=== PATIENT | female | born 1950 | race Hispanic/Latino ===

== ENCOUNTER 2017-08-30 18:53 | Emergency (ER) | payer OTHER, MEDICARE ==
[2017-08-30 20:18] LABS: Hematocrit 39.6 % (30.3-42.9); Mean Corpuscular HGB Conc 33 % (30-34); Mean Corpuscular Hemoglobin 29 pg (28-32); Mean Corpuscular Volume 89 fl (79-97); Platelet Count 182 K/mm3 (140-440); Red Blood Count 4.46 M/mm3 (3.65-5.03); Red Cell Distribution Width 14.9 % (13.2-15.2); White Blood Count 9.6 K/mm3 (4.5-11.0)
[2017-08-30 20:19] LABS: Anion Gap 19 mmol/L; BUN/Creatinine Ratio 19; Blood Urea Nitrogen 17 mg/dL (7-17); Calcium 9.7 mg/dL (8.4-10.2); Carbon Dioxide 28 mmol/L (22-30); Chloride 99.8 mmol/L (98-107); Glucose 150 mg/dL (65-100); Potassium 4.6 mmol/L (3.6-5.0); Sodium 142 mmol/L (137-145)
[2017-08-30] MEDS ORDERED: NACL 0.9% 500 ML 500 ML IV ONE (22:27)
[2017-08-30] MEDS ORDERED: DILAUDID IV ONE (22:27)
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
[2017-08-30] MEDS ORDERED: NACL 0.9% 1000 ML 1,000 ML ONE (22:53)
[2017-08-30] MEDS ORDERED: NACL ONE (23:17)
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
[2017-08-31 02:20] VITALS: BP 147/76
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
== END 2017-08-31 02:21 | disposition home or self-care (01) ==
LOC: ED 18:53
DX: M54.2 Cervicalgia (principal); R10.9 Unspecified abdominal pain; I10 Essential (primary) hypertension; I25.2 Old myocardial infarction; E11.9 Type 2 diabetes mellitus without complications; K21.9 Gastro-esophageal reflux disease without esophagitis; J45.909 Unspecified asthma, uncomplicated; F17.200 Nicotine dependence, unspecified, uncomplicated; V49.49XA Driver injured in collision with other motor vehicles in traffic accident, initial encounter; Y93.89 Activity, other specified; Y92.89 Other specified places as the place of occurrence of the external cause; Y99.8 Other external cause status
CPT/HCPCS: 36415; 70450; 71020; 72170; 74177; 80048; 85027; 93005; 93010; 96374; 99284; J1170; J7030; Q9967

== ENCOUNTER 2019-03-12 13:08 | Inpatient (IN) | payer MEDICARE, OTHER ==
--- NOTE | 2019-03-12 13:32 | Emergency Department Report ---
Blank Doc - Documentation Documentation: This is a 68-year-old female that presents with left sided neck swelling with left arm pain and swelling. HX of carotid artery bypass. Stated has pain then radiating to chest. This initial assessment/diagnostic orders/clinical plan/treatment(s) is/are subject to change based on patient's health status, clinical progression and re- assessment by fellow clinical providers in the ED. Further treatment and workup at subsequent clinical providers discretion. Patient/guardians urged not to elope from the ED as their condition may be serious if not clinically assessed and managed. Initial orders include: 1- Patient sent to MAIN ED for further evaluation and treatment 2- labs 3- EKG 4- Doppler US
--- NOTE | 2019-03-12 13:53 | Emergency Department Report ---
Chief Complaint: Extremity Problem,Nontraumatic Stated Complaint: CHEST PAIN/ (L) HAND SWOLLEN/TINGLING Time Seen by Provider: 03/12/19 13:29 - HPI History of Present Illness: Patient presents with multiple complaints. She has swelling of the left hand and arm. She has pain travels up the arm into the left side of her chest. She has a headache with nonspecific dizziness. The patient has multiple comorbidities including coronary artery disease with previous bypass surgery. She follows with [facility]. - ROS Review of Systems: Patient is positive for arm pain, arm swelling, chest pain, headache, dizziness - Exam Vital Signs: Vital Signs 03/12/19 13:29 Temperature 98.4 F Pulse Rate 89 Respiratory 16 Rate Blood Pressure 174/91 O2 Sat by Pulse 95 Oximetry Physical Exam: Patient is awake and alert. She does have some swelling of the left hand and forearm. No significant color change. Extraocular motion intact. Cranial nerves intact. MSE screening note: Focused history and physical exam performed. Due to findings the following was ordered: The patient will have CT of the head without contrast, left upper extremity venous Doppler, chest x-ray, EKG and blood work done. She will be seen on the main side of the emergency department. ED Disposition for MSE Condition: Stable
--- NOTE | 2019-03-12 14:52 | XRay Report ---
ROUTINE CHEST, TWO VIEWS: HISTORY: chest pain. Previous thoracic surgery changes are noted. The trachea, heart, mediastinal contour, lung nelson and bony thorax are unremarkable. IMPRESSION: No acute cardiopulmonary process. No change since 08/30/17.
[2019-03-12 15:00] LABS: Basophils % (Auto) 0.3 % (0.0-1.8); Eosinophils # (Auto) 0.1 K/mm3 (0.0-0.4); Eosinophils % (Auto) 1.6 % (0.0-4.3); Hematocrit 40.5 % (30.3-42.9); Hemoglobin 13.7 gm/dl (10.1-14.3); Lymphocytes # (Auto) 2.5 K/mm3 (1.2-5.4); Lymphocytes % (Auto) 31.9 % (13.4-35.0); Mean Corpuscular HGB Conc 34 % (30-34); Mean Corpuscular Volume 91 fl (79-97); Monocytes # (Auto) 0.5 K/mm3 (0.0-0.8); Platelet Count 142 K/mm3 (140-440); Red Blood Count 4.45 M/mm3 (3.65-5.03); Red Cell Distribution Width 15.2 % (13.2-15.2)
--- NOTE | 2019-03-12 15:00 | Cat Scan Report ---
CT HEAD WITHOUT CONTRAST: HISTORY: Headache with dizziness. TECHNIQUE: Sequential 2.5mm CT images. COMPARISON: 08/31/17. FINDINGS: Cerebral Parenchyma: Mild cortical volume loss and mild chronic ischemic changes in the white matter are noted. Subcentimeter chronic lacunar infarcts are identified in both anterior basal ganglia which are unchanged. The remainder of the brain parenchyma is within normal limits. Cerebellum: Within normal limits. Brainstem: Within normal limits. Ventricles: Normal. Sella: Normal. Extra-axial spaces: Normal. Basal Cisterns: Normal. Intracranial Hemorrhage: None. Midline Shift: None. Calvarium: Normal. Sinuses: Normal. Mastoid Air Cells: Normal. Visualized Orbits: Normal. IMPRESSION: No acute intracranial process. Chronic findings as described above which are unchanged since 08/31/17.
[2019-03-12] MEDS ORDERED: BABY ASPIRIN PO ONE (15:09)
[2019-03-12] MEDS ORDERED: MORPHINE IV ONE (15:09)
[2019-03-12 15:14] LABS: INR 0.93 (0.87-1.13)
--- NOTE | 2019-03-12 15:26 | Vascular Lab Report ---
PROCEDURE: VL VENOUS DUPLEX UE LT TECHNIQUE: Grayscale and color and spectral Doppler ultrasound imaging of the left upper extremity v enous system was performed. HISTORY: left arm pain and swelling COMPARISONS: None. FINDINGS: Acute, nonocclusive DVT is seen within the left axillary vein. Superficial venous thrombus is seen wi thin the left cephalic vein in the mid forearm. The remaining left upper extremity venous system is p atent with normal color flow, compression and augmentation. IMPRESSION: 1. Positive for left upper extremity DVT in the left axillary vein. 2. Positive for superficial venous thrombus in the left cephalic vein at the level of the mid forearm . Findings were discussed with Dr. Mejias at 12:23 PM PST on 03/12/2019. This document is electronically signed by Dacia Arriola., Mar 12 2019 03:23:51 PM ET
[2019-03-12 15:47] LABS: BUN/Creatinine Ratio 13; Blood Urea Nitrogen 16 mg/dL (7-17); Calcium 9.6 mg/dL (8.4-10.2); Hemolysis Index 9
--- NOTE | 2019-03-12 16:18 | Emergency Department Report ---
HPI - General Chief Complaint: Extremity Problem,Nontraumatic Time Seen by Provider: 03/12/19 13:29 - HPI HPI: 68-year-old female presents to the emergency department with multiple complaints. Her main issue is left upper extremity pain and swelling. The swelling is worst towards the hand and forearm but she says the pain shoots up into her shoulder and then into her chest. Secondly, the patient complains of a generalized headache with some nonspecific dizziness. She denies any vision change, slurred speech or any neurological deficits. Patient complains of some shortness of breath but denies any fever, cough, nausea, vomiting or di aphoresis. She has a past medical history of arthritis, asthma, diabetes, GERD, coronary artery disease with previous bypass surgery, hypertension, AAA and previous colectomy. The patient follows with heart cardiology. Her primary care physician is in [facility]. ED Past Medical Hx - Past Medical History Previous Medical History?: Yes Hx Hypertension: Yes Hx Heart Attack/AMI: Yes Hx Diabetes: Yes Hx GERD: Yes Hx Arthritis: Yes (hip shoulder) Hx Asthma: Yes Additional medical history: abd hernia r/t to colectomy, elevated cholesterol - Surgical History Past Surgical History?: Yes Hx Coronary Stent: Yes (1) Hx Appendectomy: Yes Hx Breast Surgery: Yes (B/L lumps removed) Additional Surgical History: cabbage-2007,stents this year bilateral legs,AAA, colectomy without colostomy.///bladder tack,hysterecomy - Social History Smoking Status: Current Every Day Smoker - Medications Home Medications: Home Medications Medication Instructions Recorded Confirmed Last Taken Type Aspirin EC 325 mg PO DAILY 05/08/14 11/04/15 11/03/15 History 325mg HYDROcodone/ACETAMINOPHEN 1 each PO DAILY 05/08/14 11/04/15 11/01/15 History [Hydrocodon-Acetaminophn 10-325] 1 tab Lisinopril 10 mg PO DAILY 05/08/14 11/04/15 11/03/15 History 10mg Nitroglycerin [Nitrostat] 0.4 mg PO PRN PRN 05/08/14 11/04/15 11/02/15 History 0.4mg Sertraline [Zoloft] 50 mg PO DAILY 05/08/14 11/04/15 11/03/15 History 50mg Icosapent Ethyl [Vascepa] 2 gm PO BID 11/04/15 11/04/15 11/03/15 History 2gm NexIUM 40 mg PO DAILY 11/04/15 11/04/15 11/03/15 History 40mg Norvasc 2.5 mg PO DAILY 11/04/15 11/04/15 11/03/15 History 2.5mg Promethazine [Phenergan] 25 mg PO PRN PRN 11/04/15 11/04/15 11/02/15 History 25mg Ranexa 1,000 mg PO BID 11/04/15 11/04/15 11/03/15 History 1000mg Topiramate [Topamax] 25 mg PO BID 11/04/15 11/04/15 11/03/15 History 25mg Nicotine [Habitrol] 21 mg TD QDAY #30 patch 11/05/15 Unknown Rx Prasugrel [Effient] 10 mg PO QDAY #90 tablet 11/05/15 Unknown Rx HYDROcodone/APAP 5-325 [[place] 1 each PO Q6HR PRN #12 tablet 08/31/17 Unknown Rx 5-325 mg TAB] ED Review of Systems ROS: Stated complaint: CHEST PAIN/ (L) HAND SWOLLEN/TINGLING Other details as noted in HPI Comment: All other systems reviewed and negative Constitutional: denies: chills, fever Eyes: denies: eye pain, vision change ENT: denies: ear pain, throat pain Respiratory: shortness of breath. denies: cough Cardiovascular: chest pain, edema. denies: palpitations Gastrointestinal: denies: abdominal pain, vomiting Genitourinary: denies: dysuria, discharge Musculoskeletal: joint swelling, arthralgia. denies: back pain Skin: denies: rash, lesions Neurological: headache, other (dizziness) Physical Exam - Physical Exam Vital Signs: Vital Signs 03/12/19 13:29 Temperature 98.4 F Pulse Rate 89 Respiratory 16 Rate Blood Pressure 174/91 O2 Sat by Pulse 95 Oximetry Physical Exam: GENERAL: The patient is well-developed well-nourished. HENT: Normocephalic. Atraumatic. Patient has moist mucous membranes. EYES: Extraocular motions are intact. Pupils equal reactive to light bilaterally. NECK: Supple. Trachea is midline. CHEST/LUNGS: Clear to auscultation. There is no respiratory distress noted. HEART/CARDIOVASCULAR: Regular. There is no tachycardia. There is no murmur. ABDOMEN: Abdomen is soft, nontender. Patient has normal bowel sounds. SKIN: There is mild to moderate nonpitting swelling of the left hand and forearm. NEURO: The patient is awake, alert, and oriented. The patient is cooperative. The patient has no focal neurologic deficits. The patient has normal speech. MUSCULOSKELETAL: She has some tenderness to palpation along the left upper extremity. There is no limitation range of motion. Radial pulse posterior 4 and capillary refill less than 2 seconds to the affected left upper extremity. ED Course Vital Signs 03/12/19 13:29 Temperature 98.4 F Pulse Rate 89 Respiratory 16 Rate Blood Pressure 174/91 O2 Sat by Pulse 95 Oximetry ED Medical Decision Making - Lab Data Result diagrams: 03/12/19 14:49 03/12/19 14:49 - EKG Data -: EKG Interpreted by Me EKG shows normal: sinus rhythm, axis (left axis deviation), intervals, QRS complexes (LVH), ST-T waves - EKG Data When compared to previous EKG there are: no significant change Interpretation: unchanged when compared t (09/01/17) - Radiology Data Radiology results: report reviewed, image reviewed interpreted by me: Chest x-ray does not show any acute process. There are no pleural effusions, obvious pneumonia and there is no pneumothorax. PROCEDURE: VL VENOUS DUPLEX UE LT TECHNIQUE: Grayscale and color and spectral Doppler ultrasound imaging of the left upper extremity venous system was performed. HISTORY: left arm pain and swelling COMPARISONS: None. FINDINGS: Acute, nonocclusive DVT is seen within the left axillary vein. Superficial venous thrombus is seen within the left cephalic vein in the mid forearm. The remaining left upper extremity venous system is patent with normal color flow, compression and augmentation. IMPRESSION: 1. Positive for left upper extremity DVT in the left axillary vein. 2. Positive for superficial venous thrombus in the left cephalic vein at the level of the mid forearm. CT HEAD WITHOUT CONTRAST: HISTORY: Headache with dizziness. TECHNIQUE: Sequential 2.5mm CT images. COMPARISON: 08/31/17. FINDINGS: Cerebral Parenchyma: Mild cortical volume loss and mild chronic ischemic changes in the white matter are noted. Subcentimeter chronic lacunar infarcts are identified in both anterior basal ganglia which are unchanged. The remainder of the brain parenchyma is within normal limits. Cerebellum: Within normal limits. Brainstem: Within normal limits. Ventricles: Normal. Sella: Normal. Extra-axial spaces: Normal. Basal Cisterns: Normal. Intracranial Hemorrhage: None. Midline Shift: None. Calvarium: Normal. Sinuses: Normal. Mastoid Air Cells: Normal. Visualized Orbits: Normal. IMPRESSION: No acute intracranial process. Chronic findings as described above which are unchanged since 08/31/17. Transcribed By: TTR Dictated By: RANGEL CM JR, MD Electronically Authenticated By: RANGEL CM JR, MD Signed Date/Time: 03/12/19 2708 - Medical Decision Making This patient presents to the emergency Department with complaints of left upper extremity pain and swelling with the pain going into the left side of her chest. She also complains of a headache with dizziness. On examination she does not appear to have any focal, motor or sensory deficits and her cranial nerves are intact. Heart and lung sounds are normal to auscultation and she does not appear in any respiratory distress. She does have left upper extremity nonpitting swelling and some tenderness to palpation in this area. EKG does not show any signs of ST elevation DE and is unchanged from previous. Patient's labs are mostly unremarkable including a first negative troponin. She had a venous Doppler ultrasound of the left upper extremity that shows a left axillary vein DVT and a superficial thrombophlebitis of the cephalic vein at the level of the forearm. I discussed these findings with the patient and the need to start her on anticoagulation. With the acute DVT and the patient's left-sided chest pain, along with her history of significant coronary artery disease and bypass surgery, the patient will be admitted to the hospital for further evaluation and treatment was excepted for admission by the hospitalist, Dr. Rodriguez. - Differential Diagnosis DVT, PE, DE, dysrhythmia, pneumonia Critical Care Time: Yes Critical care time in (mins) excluding proc time.: 31 Critical care attestation.: If time is entered above; I have spent that time in minutes in the direct care of this critically ill patient, excluding procedure time. Critical care time was spent on this patient and during her initial evaluation, multiple re- evaluations, ordering and interpretation of labs and imaging, ordering of heparin protocol Critical Care Time: 31 minutes ED Disposition Clinical Impression: Acute deep vein thrombosis (DVT) of axillary vein of left upper extremity, Acute chest pain, History of coronary artery disease Hypertension Qualifiers: Hypertension type: essential hypertension Qualified Code(s): I10 - Essential (primary) hypertension Disposition: 09 OP ADMIT IP TO THIS HOSP Is pt being admited?: Yes Condition: Serious Instructions: Chest Pain (ED), Hypertension (ED) Referrals: PRIMARY CARE, [Primary Care Provider] - 3-5 Days Time of Disposition: 17:10
[2019-03-12] MEDS ORDERED: HEPARIN 10,000 UNITS/10 ML IV ONE (16:23)
--- NOTE | 2019-03-12 16:25 | History and Physical Report ---
History of Present Illness Chief complaint: My chest hurts, and my arm hurts History of present illness: 68 YO Female with Obesity,HTN, [place], DM, HLD, GERD, OA, Asthma, PVD, CAD S/P CABG and Stent placement, Nicotine Dependence presents to ED for evaluation. Pt states that she has experienced pain in her arm and chest over the past 2 days with persistent symptoms over the same time frame. Pt also reports Left arm swel ling. Pt states that pain is 5/10, Constant, radiates from the left shoulder to the chest, and then from the chest back to the left shoulder, and down the left arm. Pt acknowledges shortness of breath, dypsnea with exertion, and decreased exercise tolerance. Pt transported to [facility] via private vehicle. Pt seen and evaluated in ED and found to have Angina, as well as symptoms consistent with diastolic CHF. Pt also found to have LUE DVT and Superficial Vein thrombosis on LUE Duplex. Pt initiated on therapeutic anticoagulation and admitted to telemetry. Pt denies fever, chills, palpitations, NVD, Trauma, skin rash, BRBPR, unintentional weight loss, night sweats. No prior admission for review. All listed medication reconciled at time of admission. Past History Past Surgical History: appendectomy, abd. aortic aneurysm repair, CABG, hysterectomy, hernia repair, bowel surgery, Other (Cardiac cath, cardiac stent placement) Social history: , smoking Family history: hypertension Medications and Allergies Allergies Allergy/AdvReac Type Severity Reaction Status Date / Time moxifloxacin HCl Allergy Swelling Verified 05/08/14 08:59 [From Avelox] Home Medications Medication Instructions Recorded Confirmed Last Taken Type Aspirin EC 325 mg PO DAILY 05/08/14 11/04/15 11/03/15 History 325mg HYDROcodone/ACETAMINOPHEN 1 each PO DAILY 05/08/14 11/04/15 11/01/15 History [Hydrocodon-Acetaminophn 10-325] 1 tab Lisinopril 10 mg PO DAILY 05/08/14 11/04/15 11/03/15 History 10mg Nitroglycerin [Nitrostat] 0.4 mg PO PRN PRN 05/08/14 11/04/15 11/02/15 History 0.4mg Sertraline [Zoloft] 50 mg PO DAILY 05/08/14 11/04/15 11/03/15 History 50mg Icosapent Ethyl [Vascepa] 2 gm PO BID 11/04/15 11/04/15 11/03/15 History 2gm NexIUM 40 mg PO DAILY 11/04/15 11/04/15 11/03/15 History 40mg Norvasc 2.5 mg PO DAILY 11/04/15 11/04/15 11/03/15 History 2.5mg Promethazine [Phenergan] 25 mg PO PRN PRN 11/04/15 11/04/15 11/02/15 History 25mg Ranexa 1,000 mg PO BID 11/04/15 11/04/15 11/03/15 History 1000mg Topiramate [Topamax] 25 mg PO BID 11/04/15 11/04/15 11/03/15 History 25mg Nicotine [Habitrol] 21 mg TD QDAY #30 patch 11/05/15 Unknown Rx Prasugrel [Effient] 10 mg PO QDAY #90 tablet 11/05/15 Unknown Rx HYDROcodone/APAP 5-325 [[place] 1 each PO Q6HR PRN #12 tablet 08/31/17 Unknown Rx 5-325 mg TAB] Active Meds: Active Medications Heparin Sodium/Sodium Chloride (Heparin/ 0.45% Nacl-25,000 Unit/500 Ml) 25,000 unit in 500 mls @ 25.02 mls/hr IV TITR JOÃO; Protocol Review of Systems Constitutional: no weight loss, no weight gain, no fever, no chills Ears, nose, mouth and throat: no ear pain, no ear discharge, no tinnitis, no d ecreased hearing, no nose pain Breasts: no change in shape, no swelling, no mass Cardiovascular: chest pain, orthopnea, shortness of breath, dyspnea on exertion, high blood pressure, decreased exercise tolerance, no rapid/irregular heart beat, no lightheadedness Respiratory: no cough, no cough with sputum, no excessive sputum, no hemoptysis Gastrointestinal: no abdominal pain, no nausea, no vomiting, no diarrhea, no constipation Genitourinary Female: no pelvic pain, no flank pain, no menorrhagia, no dysuria, no urinary frequency, no urgency Rectal: no pain, no incontinence, no bleeding Musculoskeletal: no neck stiffness, no neck pain, no shooting arm pain, no arm numbness/tingling, no low back pain, no shooting leg pain Integumentary: no rash, no pruritis, no redness, no sores, no wounds Neurological: no paralysis, no weakness, no parathesias, no numbness, no tin gling Psychiatric: no anxiety, no memory loss, no change in sleep habits, no sleep disturbances, no insomnia, no hypersomnia Endocrine: no cold intolerance, no heat intolerance, no polyphagia, no excessive thirst, no polydipsia, no polyuria Hematologic/Lymphatic: no easy bruising, no easy bleeding, no lymphadenopathy, no lymphedema Allergic/Immunologic: no urticaria, no wheezing, no persistent infections, no anaphylaxis Exam - Constitutional Vitals: Temp Pulse Resp BP Pulse Ox 98.4 F 89 16 174/91 95 03/12/19 13:29 03/12/19 13:29 03/12/19 13:29 03/12/19 13:29 03/12/19 13:29 General appearance: Present: mild distress, obese - EENT Eyes: Present: PERRL ENT: hearing intact, clear oral mucosa - Neck Neck: Present: supple, normal ROM - Respiratory Respiratory effort: normal Respiratory: bilateral: CTA - Cardiovascular Heart Sounds: Present: S1 & S2. Absent: rub, click - Extremities Extremities: pulses symmetrical, No edema Peripheral Pulses: within normal limits - Abdominal General gastrointestinal: Present: soft, non-tender, non-distended, normal bowel sounds Female genitourinary: Present: normal - Integumentary Integumentary: Present: clear, warm, dry - Musculoskeletal Musculoskeletal: gait normal, strength equal bilaterally - Psychiatric Psychiatric: appropriate mood/affect, intact judgment & insight - Neurologic Neurologic: CNII-XII intact, moves all extremities Results - Labs CBC & Chem 7: 03/12/19 14:49 03/12/19 14:49 Labs: Abnormal lab results 03/12/19 03/12/19 Range/Units 14:49 14:49 APTT 24.0 L (24.2-36.6) Sec. Glucose 180 H (65-100) mg/dL Assessment and Plan - Patient Problems (1) DVT of axillary vein, acute left Current Visit: Yes Status: Acute Plan to address problem: LUE duplex, therapeutic anticoagulation, supportive care. (2) Hypertensive urgency, malignant Current Visit: Yes Status: Acute Plan to address problem: Monitor BP q shift, continue prehospital therapy, IV hydralazine prn for SBP >155 (3) Diastolic CHF Current Visit: Yes Status: Acute Qualifiers: Heart failure chronicity: acute Qualified Code(s): I50.31 - Acute diastolic (congestive) heart failure Plan to address problem: Admit to telemetry, thyroid panel, magnesium level, echo, cardiology consulted in ED, strict I/O, daily weight, BNP, monitor uop q shift, daily weight, (4) HLD (hyperlipidemia) Current Visit: Yes Status: Acute Qualifiers: Hyperlipidemia type: mixed hyperlipidemia Qualified Code(s): E78.2 - Mixed hyperlipidemia Plan to address problem: Statin therapy, supportive care. (5) Angina at rest Current Visit: Yes Status: Acute Plan to address problem: Admit to telemetry, Serial cardiac enzymes, ekg, telemetry, stress test, cardiology consulted in ED, morphine, supplemental oxygen, nitro, aspirin. (6) CAD (coronary artery disease) Current Visit: Yes Status: Acute Qualifiers: Associated angina: with stable angina Plan to address problem: Admit to telemetry, statin, lipid panel, low cholesterol diet (7) Diabetes Current Visit: Yes Status: Acute Plan to address problem: ADA diet, insulin, accu check, hypoglycemia protocol (8) DVT prophylaxis Current Visit: Yes Status: Acute Plan to address problem: SCD to BLE while in bed, continue therapeutic anticoagulation.
[2019-03-12] MEDS ORDERED: ZOFRAN IV PRN (16:29)
[2019-03-12] MEDS ORDERED: TYLENOL PO PRN (16:29)
[2019-03-12] MEDS ORDERED: SODIUM CHLORIDE FLUSH SYRINGE 10 ML IV PRN ×2 (16:29)
[2019-03-12] MEDS ORDERED: PROVENTIL IH PRN (16:29)
[2019-03-12] MEDS ORDERED: NITROSTAT SL PRN (16:29)
[2019-03-12] MEDS ORDERED: HEPARIN/ 0.45% NACL-25,000 UNIT/500 ML 25,000 UNIT/500 ML BAG IV SCH (17:00)
[2019-03-12] MEDS ORDERED: PHENERGAN PO PRN (17:06)
[2019-03-12 17:09] LABS: INR 0.89 (0.87-1.13); Partial Thromboplastin Time 23.5 Sec. (24.2-36.6)
[2019-03-12 19:24] LABS: Chol/HDL Ratio 4.57 %
[2019-03-12] MEDS ORDERED: RANEXA 1000 MG PO SCH (22:00)
[2019-03-12] MEDS ORDERED: ICOSAPENT ETHYL 2 GM PO SCH (22:00)
[2019-03-12 22:35] LABS: Free T4 (Free Thyroxine) 0.96 ng/dL (0.76-1.46)
[2019-03-12] MEDS: RANEXA ER PO SCH (22:56)
[2019-03-12] MEDS: PEPCID PO SCH (22:56)
[2019-03-12] MEDS: SODIUM CHLORIDE FLUSH SYRINGE 10 ML IV SCH (22:56)
[2019-03-12] MEDS: TOPAMAX PO SCH (22:56)
[2019-03-12] MEDS: NORCO 5/325 PO PRN (23:43)
[2019-03-13] MEDS ORDERED: ZESTRIL PO SCH (10:00)
[2019-03-13] MEDS ORDERED: ECOTRIN PO SCH (10:00)
[2019-03-13] MEDS ORDERED: NORVASC 2.5 MG PO SCH (10:00)
[2019-03-13] MEDS ORDERED: HABITROL TD SCH (10:00)
[2019-03-13] MEDS ORDERED: ZOLOFT PO SCH (10:00)
[2019-03-13] MEDS ORDERED: NORVASC PO SCH (10:00)
[2019-03-13] MEDS ORDERED: NON-FORMULARY (Nexium 40 MG) PO SCH (10:00)
[2019-03-13] MEDS ORDERED: NORCO 10/325 PO SCH (10:00)
[2019-03-13] MEDS ORDERED: EFFIENT PO SCH (10:00)
--- NOTE | 2019-03-13 10:45 | Discharge Summary ---
Providers - Providers Date of Admission: 03/12/19 16:30 Date of discharge: 03/13/19 Attending physician: BALJEET VIVAR 03/12/19 Consult to Cardiac Rehabilitation [CONS] Routine Reason For Exam: Phase I 03/12/19 16:30 Consult to Cardiology [CONS] Routine Consulting Provider: ADDIE SHORT Reason For Exam: angina/chf Primary care physician: KEY ACCOUNT COORDINATOR Hospitalization Reason for admission: Left arm DVT Condition: Serious Hospital course: 68 YO Female with Obesity,HTN, [place], DM, HLD, GERD, OA, Asthma, PVD, CAD S/P CABG and Stent placement, Nicotine Dependence presents to ED for evaluation. Pt states that she has experienced pain in her arm and chest over the past 2 days with persistent symptoms over the same time frame. Pt also reports Left arm swelling. Pt states that pain is 5/10, Constant, radiates from the left shoulder to the chest, and then from the chest back to the left shoulder, and down the left arm. The patient underwent ultrasound which revealed left upper extremity DVT in the left axillary vein and superficial venous thrombus in the left cephalic vein at the level of the mid forearm. Patient was seen by cardiology in consultation and felt that her chest and pain was related to DVT. Stress test was canceled. Patient had no evidence of heart failure exacerbation with a normal BNP and chest x-ray showing no evidence of effusions. Patient is felt to receive maximal hospital benefit and thus will be discharged home with [facility]. Dedicated discharge time 32 minutes Disposition: DC-01 TO HOME OR SELFCARE Time spent for discharge: 32 - Discharge Diagnoses (1) Acute chest pain Status: Acute (2) Acute deep vein thrombosis (DVT) of axillary vein of left upper extremity Status: Acute (3) CAD (coronary artery disease) Status: Acute Qualifiers: Associated angina: with stable angina (4) DVT of axillary vein, acute left Status: Acute (5) Diabetes Status: Acute (6) HLD (hyperlipidemia) Status: Acute Qualifiers: Hyperlipidemia type: mixed hyperlipidemia Qualified Code(s): E78.2 - Mixed hyperlipidemia (7) HTN (hypertension) Status: Acute Qualifiers: Hypertension type: essential hypertension Qualified Code(s): I10 - Essential (primary) hypertension (8) History of coronary artery disease Status: Acute Core Measure Documentation - Palliative Care Palliative Care/ Comfort Measures: Not Applicable - Core Measures Any of the following diagnoses?: DVT/PE - VTE Discharge Requirements Deep Vein Thrombosis/Pulmonary Embolism Present on Admission: Yes Has pt received <5 days of overlap therapy or INR<2.0: Yes (eliquis) Anticoagulant overlap therapy prescribed at discharge: No Contraindication No Overlap Therapy order at DC: Not Indicated Exam - Constitutional Vitals: Temp Pulse Resp BP Pulse Ox 98.1 F 102 H 16 135/79 95 03/13/19 08:03/13/19 08:03/13/19 08:03/13/19 08:03/13/19 09:36 General appearance: Present: no acute distress, well-nourished - EENT Eyes: Present: PERRL ENT: hearing intact, clear oral mucosa - Neck Neck: Present: supple, normal ROM - Respiratory Respiratory effort: normal Respiratory: bilateral: CTA - Cardiovascular Heart Sounds: Present: S1 & S2. Absent: rub, click - Extremities Extremities: pulses symmetrical, No edema Peripheral Pulses: within normal limits - Abdominal General gastrointestinal: Present: soft, non-tender, non-distended, normal bowel sounds Female genitourinary: Present: normal - Integumentary Integumentary: Present: clear, warm, dry - Musculoskeletal Musculoskeletal: gait normal, strength equal bilaterally - Psychiatric Psychiatric: appropriate mood/affect, intact judgment & insight - Neurologic Neurologic: CNII-XII intact, moves all extremities Plan Activity: advance as tolerated Weight Bearing Status: Weight Bear as Tolerated Follow up with: PRIMARY CARE, [Primary Care Provider] - 3-5 Days Prescriptions: Aspirin EC 325 mg PO DAILY #30 tablet Apixaban [Eliquis] 10 mg PO BID 7 Days #14 tablet Apixaban [Eliquis] 5 mg PO BID 180 Days #360 tablet Nicotine [Habitrol] 21 mg TD QDAY #30 patch HYDROcodone/APAP 5-325 [[place] 5-325 mg TAB] 1 each PO Q6HR PRN #12 tablet PRN Reason: Pain Norvasc 2.5 mg PO DAILY #30 Famotidine [Pepcid] 20 mg PO BID #60 tablet Ranolazine ER [Ranexa ER] 1,000 mg PO BID #60 tablet Topiramate [Topamax] 25 mg PO BID #60 tablet Lisinopril [Zestril TAB] 10 mg PO DAILY #30 tablet Sertraline [Zoloft] 50 mg PO DAILY #30 tablet
--- NOTE | 2019-03-13 11:11 | Consultation ---
History of Present Illness Consult date: 03/13/19 Consult reason: chest pain History of present illness: This is a 68 year old woman with coronary artery disease, remote coronary bypass grafting, with PCI of the SVG to the distal LAD in 2016 who presented with left arm pain and edema, left shoulder pain radiating to her chest. Chest x-ray is negative. Further evaluation with a left upper extremity duplex was positive for acute DVT. An EKG is sinus rhythm with non-specific changes. Past History Past Surgical History: appendectomy, abd. aortic aneurysm repair, CABG, hysterectomy, hernia repair, bowel surgery Social history: , smoking Family history: hypertension Medications and Allergies Allergies Allergy/AdvReac Type Severity Reaction Status Date / Time moxifloxacin HCl Allergy Swelling Verified 05/08/14 08:59 [From Avelox] Home Medications Medication Instructions Recorded Confirmed Last Taken Type HYDROcodone/ACETAMINOPHEN 1 each PO DAILY 05/08/14 11/04/15 11/01/15 History [Hydrocodon-Acetaminophn 10-325] 1 tab Lisinopril 10 mg PO DAILY 05/08/14 11/04/15 11/03/15 History 10mg Nitroglycerin [Nitrostat] 0.4 mg PO PRN PRN 05/08/14 11/04/15 11/02/15 History 0.4mg Icosapent Ethyl [Vascepa] 2 gm PO BID 11/04/15 11/04/15 11/03/15 History 2gm NexIUM 40 mg PO DAILY 11/04/15 11/04/15 11/03/15 History 40mg Promethazine [Phenergan] 25 mg PO PRN PRN 11/04/15 11/04/15 11/02/15 History 25mg Ranexa 1,000 mg PO BID 11/04/15 11/04/15 11/03/15 History 1000mg Apixaban [Eliquis] 5 mg PO BID 180 Days #360 tablet 03/13/19 Unknown Rx Apixaban [Eliquis] 10 mg PO BID 7 Days #14 tablet 03/13/19 Unknown Rx Aspirin EC 325 mg PO DAILY #30 tablet 03/13/19 Unknown Rx Famotidine [Pepcid] 20 mg PO BID #60 tablet 03/13/19 Unknown Rx HYDROcodone/APAP 5-325 [[place] 1 each PO Q6HR PRN #12 tablet 03/13/19 Unknown Rx 5-325 mg TAB] Lisinopril [Zestril TAB] 10 mg PO DAILY #30 tablet 03/13/19 Unknown Rx Nicotine [Habitrol] 21 mg TD QDAY #30 patch 03/13/19 Unknown Rx Nitroglycerin [Nitrostat] 0.4 mg SL Q5M PRN tablet 03/13/19 Unknown Rx Norvasc 2.5 mg PO DAILY #30 03/13/19 Unknown Rx Ranolazine ER [Ranexa ER] 1,000 mg PO BID #60 tablet 03/13/19 Unknown Rx Sertraline [Zoloft] 50 mg PO DAILY #30 tablet 03/13/19 Unknown Rx Topiramate [Topamax] 25 mg PO BID #60 tablet 03/13/19 Unknown Rx amLODIPine [Norvasc] 2.5 mg PO QDAY tablet 03/13/19 Unknown Rx Active Meds: Active Medications Acetaminophen (Tylenol) 650 mg PO Q4H PRN PRN Reason: Pain MILD(1-3)/Fever >100.5/MONTES Acetaminophen/Hydrocodone Bitart ([place] 5/325) 1 each PO Q6H PRN PRN Reason: Pain, Moderate (4-6) Last Admin: 03/12/19 23:43 Dose: 1 each Documented by: Albuterol (Proventil) 2.5 mg IH Q4HRT PRN PRN Reason: Shortness Of Breath Amlodipine Besylate (Norvasc) 2.5 mg PO QDAY [facility] Aspirin (Ecotrin) 325 mg PO DAILY [facility] Famotidine (Pepcid) 20 mg PO BID [facility] Last Admin: 03/12/19 22:56 Dose: 20 mg Documented by: Heparin Sodium/Sodium Chloride (Heparin/ 0.45% Nacl-25,000 Unit/500 Ml) 25,000 unit in 500 mls @ 24 mls/hr IV TITR JOÃO; Protocol Lisinopril (Zestril) 10 mg PO DAILY [facility] Miscellaneous Medication (Icosapent Ethyl [Vascepa]) 2 gm PO BID [facility] Nicotine (Habitrol) 21 mg TD QDAY [facility] Nitroglycerin (Nitrostat) 0.4 mg SL Q5M PRN PRN Reason: Chest Pain Ondansetron HCl (Zofran) 4 mg IV Q8H PRN PRN Reason: Nausea And Vomiting Pneumococcal Polyvalent Vaccine (Pneumovax 23) 0.5 ml IM .ONCE ONE Stop: 03/13/19 12:01 Prasugrel (Effient) 10 mg PO QDAY [facility] Promethazine HCl (Phenergan) 25 mg PO Q6H PRN PRN Reason: Nausea And Vomiting Ranolazine (Ranexa Er) 1,000 mg PO BID [facility] Last Admin: 03/12/19 22:56 Dose: 1,000 mg Documented by: Sertraline HCl (Zoloft) 50 mg PO DAILY [facility] Sodium Chloride (Sodium Chloride Flush Syringe 10 Ml) 10 ml IV BID [facility] Last Admin: 03/12/19 22:56 Dose: 10 ml Documented by: Sodium Chloride (Sodium Chloride Flush Syringe 10 Ml) 10 ml IV PRN PRN PRN Reason: LINE FLUSH Topiramate (Topamax) 25 mg PO BID [facility] Last Admin: 03/12/19 22:56 Dose: 25 mg Documented by: Physical Examination Vital Signs Temp Pulse Resp BP Pulse Ox 98.4 F 89 16 174/91 95 03/12/19 13:29 03/12/19 13:29 03/12/19 13:29 03/12/19 13:29 03/12/19 13:29 General appearance: no acute distress HEENT: Positive: PERRL Neck: Positive: trachea midline Cardiac: Positive: Reg Rate and Rhythm Lungs: Positive: Decreased Breath Sounds Neuro: Positive: Grossly Intact Extremities: Present: edema (left upper extremity) Results 03/12/19 14:49 03/12/19 14:49 Coagulation 03/12/19 03/12/19 Range/Units 14:49 16:46 PT 13.0 12.6 (12.2-14.9) Sec. INR 0.93 0.89 (0.87-1.13) APTT 24.0 L 23.5 L (24.2-36.6) Sec. Lipids 03/12/19 Range/Units 14:49 Triglycerides 364 H (2-149) mg/dL Cholesterol 192 (50-199) mg/dL HDL Cholesterol 42 (40-59) mg/dL Cholesterol/HDL Ratio 4.57 % CBC 03/12/19 Range/Units 14:49 WBC 8.0 (4.5-11.0) K/mm3 RBC 4.45 (3.65-5.03) M/mm3 Hgb 13.7 (10.1-14.3) gm/dl Hct 40.5 (30.3-42.9) % Plt Count 142 (140-440) K/mm3 Lymph # 2.5 (1.2-5.4) K/mm3 Taylor # 0.5 (0.0-0.8) K/mm3 Eos # 0.1 (0.0-0.4) K/mm3 Baso # 0.0 (0.0-0.1) K/mm3 Comprehensive Metabolic Panel 03/12/19 Range/Units 14:49 Sodium 139 (137-145) mmol/L Potassium 4.1 (3.6-5.0) mmol/L Chloride 98.6 (98-107) mmol/L Carbon Dioxide 27 (22-30) mmol/L BUN 16 (7-17) mg/dL Creatinine 1.2 (0.7-1.2) mg/dL Glucose 180 H (65-100) mg/dL Calcium 9.6 (8.4-10.2) mg/dL Assessment and Plan Acute LUE DVT on IV heparin Hx of CAD with prior CABG Hypertension Hyperlipidemia Recommendations: Echocardiogram for LVEF assessment. LE doppler. Anticoagulation with eliquis therapy
[2019-03-13] MEDS ORDERED: PNEUMOVAX 23 IM ONE (12:00)
[2019-03-13 13:46] VITALS: BP 187/89
[2019-03-13] MEDS: NORCO 5/325 PO PRN (14:05)
[2019-03-13] MEDS: PEPCID PO SCH (14:07)
[2019-03-13] MEDS: TOPAMAX PO SCH (14:08)
[2019-03-13] MEDS: RANEXA ER PO SCH (14:09)
[2019-03-13] MEDS: SODIUM CHLORIDE FLUSH SYRINGE 10 ML IV SCH (14:09)
== END 2019-03-13 19:00 | disposition home or self-care (01) | DRG 301 ==
LOC: ED 13:08 → 4A 16:30
PROVIDERS: ADMIT Internal Medicine; ATTEND Hospitalist
PROC: 3E0234Z Introduction of Serum, Toxoid and Vaccine into Muscle, Percutaneous Approach (ICD-10-PCS; principal; 2019-03-13)
DX: I82.A12 Acute embolism and thrombosis of left axillary vein (principal); I25.119 Atherosclerotic heart disease of native coronary artery with unspecified angina pectoris; I82.612 Acute embolism and thrombosis of superficial veins of left upper extremity; I16.0 Hypertensive urgency; E66.9 Obesity, unspecified; K21.9 Gastro-esophageal reflux disease without esophagitis; I11.0 Hypertensive heart disease with heart failure; M19.90 Unspecified osteoarthritis, unspecified site; E11.51 Type 2 diabetes mellitus with diabetic peripheral angiopathy without gangrene; F17.200 Nicotine dependence, unspecified, uncomplicated; J45.909 Unspecified asthma, uncomplicated; E78.2 Mixed hyperlipidemia; Z68.32 Body mass index [BMI] 32.0-32.9, adult; Z90.49 Acquired absence of other specified parts of digestive tract; I25.2 Old myocardial infarction; Z95.1 Presence of aortocoronary bypass graft; Z95.5 Presence of coronary angioplasty implant and graft; Z90.710 Acquired absence of both cervix and uterus; Z82.49 Family history of ischemic heart disease and other diseases of the circulatory system; Z79.899 Other long term (current) drug therapy; Z23 Encounter for immunization
CPT/HCPCS: 36415; 70450; 71046; 80048; 80061; 83735; 83880; 84439; 84443; 84484; 85025; 85520; 85610; 85730; 90732; 93005; 93010; 93306; 96374; 99291; 99406; G0378; J1644; J2270

== ENCOUNTER 2019-04-05 20:50 | Inpatient (IN) | payer MEDICARE, OTHER ==
--- NOTE | 2019-04-05 22:13 | Emergency Department Report ---
ED Extremity Problem HPI - General Chief complaint: Extremity Injury, Upper Stated complaint: CHEST/ARM PAIN Time Seen by Provider: 04/05/19 21:57 Source: patient Mode of arrival: Ambulatory Limitations: No Limitations - History of Present Illness Initial comments: 68-year-old female presents to ED with complaint of numbness to the fingers of the left hand, and pain to the left arm. One month ago, patient was diagnosed with left axillary vein DVT. Patient states at that time she was experiencing pain to the left hand and forearm and radiated up into her left chest. Patient also has swelling of left hand and arm at that time. Patient was admitted for workup. Cardiology was consulted for her chest pain and stated that it was related to the DVT, and was not cardiac in nature. Patient was placed on Eliquis and discharged home. Has followed up with vascular surgeon and has follow-up US scheduled for next week, April 11. Patient states the swelling has improved from last month. Also states the pain had improved, but returned 4 days ago, along with numbness in the left thumb, index fingers and forearm. States pain starts in the upper left arm and radiates into left chest, same as it did last month when she was hospitalized. Patient says the chest pain is worse with cough and palpation. Reports compliance with eliquis. Patient has history of chronic back pain w/ sciatica for which she was seeing pain management, but no longer is. Was discharged with Hydrocodone 5 mg, which she states does not help her pain. Patient states she found Oxycodone 10 mg at home, that was the only thing that gave her relief. MD Complaint: extremity pain, other (paresthesias) -: days(s) (4) Location: left, upper extremity History of Same: Yes Radiation: proximal Quality: sharp Consistency: intermittent Improves with: other (percocet 10 mg) Worsens with: nothing Associated Symptoms: chest pain. denies: shortness of breath - Related Data Home Medications Medication Instructions Recorded Confirmed Last Taken HYDROcodone/ACETAMINOPHEN 1 each PO DAILY 05/08/14 11/04/15 11/01/15 [Hydrocodon-Acetaminophn 10-325] 1 tab Lisinopril 10 mg PO DAILY 05/08/14 11/04/15 11/03/15 10mg Nitroglycerin [Nitrostat] 0.4 mg PO PRN PRN 05/08/14 11/04/15 11/02/15 0.4mg Icosapent Ethyl [Vascepa] 2 gm PO BID 11/04/15 11/04/15 11/03/15 2gm NexIUM 40 mg PO DAILY 11/04/15 11/04/15 11/03/15 40mg Promethazine [Phenergan] 25 mg PO PRN PRN 11/04/15 11/04/15 11/02/15 25mg Ranexa 1,000 mg PO BID 11/04/15 11/04/15 11/03/15 1000mg Previous Rx's Medication Instructions Recorded Last Taken Type Apixaban [Eliquis] 5 mg PO BID 180 Days #360 tablet 03/13/19 Unknown Rx Apixaban [Eliquis] 10 mg PO BID 7 Days #14 tablet 03/13/19 Unknown Rx Aspirin EC 325 mg PO DAILY #30 tablet 03/13/19 Unknown Rx Famotidine [Pepcid] 20 mg PO BID #60 tablet 03/13/19 Unknown Rx HYDROcodone/APAP 5-325 [[place] 1 each PO Q6HR PRN #12 tablet 03/13/19 Unknown Rx 5-325 mg TAB] Lisinopril [Zestril TAB] 10 mg PO DAILY #30 tablet 03/13/19 Unknown Rx Nicotine [Habitrol] 21 mg TD QDAY #30 patch 03/13/19 Unknown Rx Nitroglycerin [Nitrostat] 0.4 mg SL Q5M PRN tablet 03/13/19 Unknown Rx Norvasc 2.5 mg PO DAILY #30 03/13/19 Unknown Rx Ranolazine ER [Ranexa ER] 1,000 mg PO BID #60 tablet 03/13/19 Unknown Rx Sertraline [Zoloft] 50 mg PO DAILY #30 tablet 03/13/19 Unknown Rx Topiramate [Topamax] 25 mg PO BID #60 tablet 03/13/19 Unknown Rx amLODIPine [Norvasc] 2.5 mg PO QDAY tablet 03/13/19 Unknown Rx Allergies Allergy/AdvReac Type Severity Reaction Status Date / Time moxifloxacin HCl Allergy Swelling Verified 05/08/14 08:59 [From Avelox] ED Review of Systems ROS: Stated complaint: CHEST/ARM PAIN Other details as noted in HPI Comment: All other systems reviewed and negative Constitutional: denies: chills, fever Respiratory: denies: shortness of breath Cardiovascular: chest pain Musculoskeletal: as per HPI Neurological: paresthesias ED Past Medical Hx - Past Medical History Previous Medical History?: Yes Hx Hypertension: Yes Hx Heart Attack/AMI: Yes (Open Heart Surgery) Hx Diabetes: Yes Hx GERD: Yes Hx Arthritis: Yes (hip shoulder) Hx Asthma: Yes Additional medical history: abd hernia r/t to colectomy, elevated cholesterol - Surgical History Past Surgical History?: Yes Hx Coronary Stent: Yes (no arteries multiple stents) Hx Appendectomy: Yes Hx Breast Surgery: Yes (B/L lumps removed) Additional Surgical History: cabbage-2007,stents this year bilateral legs,AAA, colectomy without colostomy.///bladder tack,hysterecomy - Social History Smoking Status: Current Every Day Smoker - Medications Home Medications: Home Medications Medication Instructions Recorded Confirmed Last Taken Type HYDROcodone/ACETAMINOPHEN 1 each PO DAILY 05/08/14 11/04/15 11/01/15 History [Hydrocodon-Acetaminophn 10-325] 1 tab Lisinopril 10 mg PO DAILY 05/08/14 11/04/15 11/03/15 History 10mg Nitroglycerin [Nitrostat] 0.4 mg PO PRN PRN 05/08/14 11/04/15 11/02/15 History 0.4mg Icosapent Ethyl [Vascepa] 2 gm PO BID 11/04/15 11/04/15 11/03/15 History 2gm NexIUM 40 mg PO DAILY 11/04/15 11/04/15 11/03/15 History 40mg Promethazine [Phenergan] 25 mg PO PRN PRN 11/04/15 11/04/15 11/02/15 History 25mg Ranexa 1,000 mg PO BID 11/04/15 11/04/15 11/03/15 History 1000mg Apixaban [Eliquis] 5 mg PO BID 180 Days #360 tablet 03/13/19 Unknown Rx Apixaban [Eliquis] 10 mg PO BID 7 Days #14 tablet 03/13/19 Unknown Rx Aspirin EC 325 mg PO DAILY #30 tablet 03/13/19 Unknown Rx Famotidine [Pepcid] 20 mg PO BID #60 tablet 03/13/19 Unknown Rx HYDROcodone/APAP 5-325 [[place] 1 each PO Q6HR PRN #12 tablet 03/13/19 Unknown Rx 5-325 mg TAB] Lisinopril [Zestril TAB] 10 mg PO DAILY #30 tablet 03/13/19 Unknown Rx Nicotine [Habitrol] 21 mg TD QDAY #30 patch 03/13/19 Unknown Rx Nitroglycerin [Nitrostat] 0.4 mg SL Q5M PRN tablet 03/13/19 Unknown Rx Norvasc 2.5 mg PO DAILY #30 03/13/19 Unknown Rx Ranolazine ER [Ranexa ER] 1,000 mg PO BID #60 tablet 03/13/19 Unknown Rx Sertraline [Zoloft] 50 mg PO DAILY #30 tablet 03/13/19 Unknown Rx Topiramate [Topamax] 25 mg PO BID #60 tablet 03/13/19 Unknown Rx amLODIPine [Norvasc] 2.5 mg PO QDAY tablet 03/13/19 Unknown Rx ED Physical Exam - General Limitations: No Limitations General appearance: alert, in no apparent distress - Head Head exam: Present: atraumatic, normocephalic - Eye Eye exam: Present: normal appearance - ENT ENT exam: Present: mucous membranes moist - Neck Neck exam: Present: normal inspection - Respiratory Respiratory exam: Present: normal lung sounds bilaterally, chest wall tenderness (left upper anterior chest wall). Absent: respiratory distress - Cardiovascular Cardiovascular Exam: Present: regular rate, normal rhythm - GI/Abdominal GI/Abdominal exam: Present: soft. Absent: distended, tenderness - Extremities Exam Extremities exam: Present: other (trace swelling noted to left hand; able to flex/ extend left fingers and wrist; tenderness to left forearm and upper arm; decreased sensation to left thumb and index) - Neurological Exam Neurological exam: Present: alert, oriented X3 - Psychiatric Psychiatric exam: Present: normal affect, normal mood - Skin Skin exam: Present: warm, dry, intact, normal color ED Course Vital Signs 04/05/19 04/05/19 04/05/19 20:55 21:43 22:09 Temperature 97.8 F 97.8 F 98.6 F Pulse Rate 66 63 65 Respiratory 18 12 Rate Blood Pressure 149/63 149/63 Blood Pressure 159/45 [Right] O2 Sat by Pulse 97 96 Oximetry ED Medical Decision Making - Lab Data Result diagrams: 04/05/19 22:40 04/05/19 22:40 - EKG Data -: EKG Interpreted by Me EKG shows normal: sinus rhythm, axis, intervals, QRS complexes - EKG Data When compared to previous EKG there are: no significant change (compared to 03/13/19) Interpretation: nonspecific ST-T wave karli - Radiology Data Radiology results: report reviewed, image reviewed - Medical Decision Making Troponin slightly elevated at 0.039, however, during last admission pt's troponins were all <0.010. EKG remains unchanged from previous w/ no ST changes present. Due to significant cardiac history, will admit for cardiac workup. Pt comfortable at this time, resting, no distress, vitals normal. Critical care attestation.: If time is entered above; I have spent that time in minutes in the direct care of this critically ill patient, excluding procedure time. ED Disposition Clinical Impression: Acute chest pain, Left median nerve neuropathy Disposition: OP ADMIT IP TO THIS HOSP Is pt being admited?: Yes Condition: Stable Instructions: Chest Pain (ED) Referrals: PASQUALE GALDAMEZ MD [Primary Care Provider] - 3-5 Days
[2019-04-05] MEDS ORDERED: NORCO 7.5/325 PO ONE (22:37)
[2019-04-05 22:53] LABS: Basophils % (Auto) 0.3 % (0.0-1.8); Eosinophils # (Auto) 0.1 K/mm3 (0.0-0.4); Eosinophils % (Auto) 1.5 % (0.0-4.3); Hematocrit 36.8 % (30.3-42.9); Hemoglobin 12.7 gm/dl (10.1-14.3); Lymphocytes # (Auto) 2.4 K/mm3 (1.2-5.4); Lymphocytes % (Auto) 29.2 % (13.4-35.0); Mean Corpuscular HGB Conc 34 % (30-34); Mean Corpuscular Volume 92 fl (79-97); Monocytes # (Auto) 0.5 K/mm3 (0.0-0.8); Monocytes % (Auto) 5.8 % (0.0-7.3); Platelet Count 127 K/mm3 (140-440); Red Blood Count 4.01 M/mm3 (3.65-5.03); Red Cell Distribution Width 14.7 % (13.2-15.2)
--- NOTE | 2019-04-05 23:01 | XRay Report ---
PROCEDURE: XR CHEST 1V AP TECHNIQUE: Chest radiograph single view. HISTORY: Chest Pain COMPARISONS: CXR 08/30/2017 . FINDINGS: Heart: Normal. Mediastinum/Vessels: Normal. Lungs/Pleural space: Normal. Bony thorax: No acute osseous abnormality. Life support devices: Median sternotomy wires are again noted. IMPRESSION: No acute cardiopulmonary abnormality. No change This document is electronically signed by Paulina Castro MD., April 05 2019 10:59:08 PM ET
[2019-04-05 23:08] LABS: Calcium 9.7 mg/dL (8.4-10.2)
[2019-04-05 23:11] LABS: INR 1.52 (0.87-1.13); Partial Thromboplastin Time 29.2 Sec. (24.2-36.6)
[2019-04-05] MEDS ORDERED: ASPIRIN PO ONE (23:43)
[2019-04-05] MEDS ORDERED: NITROSTAT SL PRN (23:59)
[2019-04-06] MEDS ORDERED: ZOFRAN IV PRN (00:17)
[2019-04-06] MEDS ORDERED: TYLENOL PO PRN (00:17)
[2019-04-06] MEDS ORDERED: MORPHINE IV PRN (00:17)
[2019-04-06 00:25] LABS: Chol/HDL Ratio 5.38 %
[2019-04-06] MEDS ORDERED: D50W (25GM) Syringe IV PRN (00:32)
[2019-04-06] MEDS ORDERED: PROVENTIL IH PRN (00:33)
--- NOTE | 2019-04-06 00:48 | History and Physical Report ---
<NAKIA WESLEY - Last Filed: 04/06/19 01:53> History of Present Illness Date of examination: 04/06/19 Date of admission: 04/06/2019 Chief complaint: Chest pain, left arm pain and swelling History of present illness: 68-year-old female with history of coronary artery disease S/P CABG, left upper extremity DVT on Eliquis, HTN, HLD, obesity, GERD, osteoarthritis, asthma, VA, DM presents [facility] with complaints of numbness to left fingers and hand, pain to the left arm radiating to left side of chest. Pt states that she has left arm pain that radiates to left side of chest for the past 4 days. Her left arm pain is associated with numbness and swelling of left arm as well. Left arm pain is aggravated by palpation, and relieved with oxycodone. She rates her pain 6/10. Her chest pain is intermittent and she describes it as a asching. Review of medical records shows patient was admitted in February for similar complaints. She underwent echocardiogram on 03/13/19 which showed ejection fraction of 60-65%. A LE doppler was done and she was found to have left upper extremity DVT and was started on Eliquis. States that she's been compliant with Eliquis therapy. Denies: n/v/d, diaphoresis, fever, cough, hemoptysis, headache Past History Past Medical History: acute VA, diabetes, DVT (left upper extremity on Eliquis), GERD, hypertension, hyperlipidemia, other (asthma, osteo-arthritis, obesity) Past Surgical History: appendectomy, abd. aortic aneurysm repair, CABG, hysterectomy, hernia repair (bowel surgery) Social history: smoking (ongoing smoker) Family history: hypertension Medications and Allergies Allergies Allergy/AdvReac Type Severity Reaction Status Date / Time moxifloxacin HCl Allergy Swelling Verified 05/08/14 08:59 [From Avelox] Home Medications Medication Instructions Recorded Confirmed Last Taken Type HYDROcodone/ACETAMINOPHEN 1 each PO DAILY 05/08/14 04/06/19 11/01/15 History [Hydrocodon-Acetaminophn 10-325] 1 tab Lisinopril 10 mg PO DAILY 05/08/14 04/06/19 11/03/15 History 10mg Nitroglycerin [Nitrostat] 0.4 mg PO PRN PRN 05/08/14 04/06/19 11/02/15 History 0.4mg Icosapent Ethyl [Vascepa] 2 gm PO BID 11/04/15 04/06/19 11/03/15 History 2gm NexIUM 40 mg PO DAILY 11/04/15 04/06/19 11/03/15 History 40mg Promethazine [Phenergan] 25 mg PO PRN PRN 11/04/15 04/06/19 11/02/15 History 25mg Ranexa 1,000 mg PO BID 11/04/15 04/06/19 11/03/15 History 1000mg Apixaban [Eliquis] 5 mg PO BID 180 Days #360 tablet 03/13/19 04/06/19 Unknown Rx Apixaban [Eliquis] 10 mg PO BID 7 Days #14 tablet 03/13/19 04/06/19 Unknown Rx Aspirin EC 325 mg PO DAILY #30 tablet 03/13/19 04/06/19 Unknown Rx HYDROcodone/APAP 5-325 [[place] 1 each PO Q6HR PRN #12 tablet 03/13/19 04/06/19 Unknown Rx 5-325 mg TAB] Lisinopril [Zestril TAB] 10 mg PO DAILY #30 tablet 03/13/19 04/06/19 Unknown Rx Nicotine [Habitrol] 21 mg TD QDAY #30 patch 03/13/19 04/06/19 Unknown Rx Nitroglycerin [Nitrostat] 0.4 mg SL Q5M PRN tablet 03/13/19 04/06/19 Unknown Rx Ranolazine ER [Ranexa ER] 1,000 mg PO BID #60 tablet 03/13/19 04/06/19 Unknown Rx Sertraline [Zoloft] 50 mg PO DAILY #30 tablet 03/13/19 04/06/19 Unknown Rx Topiramate [Topamax] 25 mg PO BID #60 tablet 03/13/19 04/06/19 Unknown Rx ALPRAZolam [Xanax TAB] 1 tab PO TID 04/06/19 04/06/19 Unknown History Active Meds: Active Medications Acetaminophen (Tylenol) 650 mg PO Q4H PRN PRN Reason: Pain MILD(1-3)/Fever >100.5/MONTES Albuterol (Proventil) 2.5 mg IH Q4HRT PRN PRN Reason: Shortness Of Breath Amlodipine Besylate (Norvasc) 2.5 mg PO QDAY [facility] Apixaban (Eliquis) 5 mg PO BID [facility]; Protocol Aspirin (Baby Aspirin) 81 mg PO QDAY [facility] Atorvastatin Calcium (Lipitor) 40 mg PO QHS [facility] Dextrose (D50w (25gm) Syringe) 50 ml IV PRN PRN PRN Reason: Hypoglycemia Docusate Sodium (Colace) 100 mg PO BID [facility] Famotidine (Pepcid) 10 mg PO BID [facility] Insulin Human Regular (Humulin R) 0 units SUB-Q ACHS [facility]; Protocol Lisinopril (Zestril) 10 mg PO DAILY [facility] Morphine Sulfate (Morphine) 2 mg IV Q4H PRN PRN Reason: Pain, Moderate (4-6) Stop: 04/06/19 23:59 Nicotine (Habitrol) 21 mg TD QDAY [facility] Nitroglycerin (Nitrostat) 0.4 mg SL Q5M PRN PRN Reason: Chest Pain Ondansetron HCl (Zofran) 4 mg IV Q8H PRN PRN Reason: Nausea And Vomiting Oxycodone/Acetaminophen (Percocet 5/325) 1 tab PO Q6H PRN PRN Reason: Pain, Moderate (4-6) Sodium Chloride (Sodium Chloride Flush Syringe 10 Ml) 10 ml IV BID [facility] Sodium Chloride (Sodium Chloride Flush Syringe 10 Ml) 10 ml IV PRN PRN PRN Reason: LINE FLUSH Topiramate (Topamax) 25 mg PO BID [facility] Review of Systems All systems: negative (reviewed and no additional remarkable complaints except as noted below) Cardiovascular: chest pain Musculoskeletal: other (left upper extremity swelling, numbness) Exam - Physical Exam Narrative exam: Physical exam General appearance: Present: No acute distress, alert and oriented 3, older adult female - EENT Eyes: Present: PERRL, EOM intact ENT: hearing intact, poor dentition - Neck Neck: Present: supple, normal ROM - Respiratory Respiratory effort: Non-labored Respiratory: Clear throughout - Cardiovascular Heart rate: 65 (bpm) Rhythm: regular Heart Sounds: Present: S1 & S2. Absent: rub, click - Extremities Extremities: no ischemia, pulses intact, abnormal (decreased sensation to the left upper extremity) - Peripheral Assessment Peripheral Pulses: within normal limits - Abdominal General gastrointestinal: soft, non-tender, normal bowel sounds - Integumentary Integumentary: Present: warm, dry - Musculoskeletal Musculoskeletal: Able to move all extremities - Psychiatric Psychiatric: cooperative - Constitutional Vitals: Temp Pulse Resp BP Pulse Ox 98.6 F 74 14 147/52 98 04/05/19 22:09 04/06/19 00:00 04/06/19 00:00 04/06/19 00:00 04/06/19 00:00 Results - Labs CBC & Chem 7: 04/05/19 22:40 04/05/19 22:40 Labs: Laboratory Last Values WBC 8.1 K/mm3 (4.5-11.0) 04/05/19 22:40 RBC 4.01 M/mm3 (3.65-5.03) 04/05/19 22:40 Hgb 12.7 gm/dl (10.1-14.3) 04/05/19 22:40 Hct 36.8 % (30.3-42.9) 04/05/19 22:40 MCV 92 fl (79-97) 04/05/19 22:40 MCH 32 pg (28-32) 04/05/19 22:40 MCHC 34 % (30-34) 04/05/19 22:40 RDW 14.7 % (13.2-15.2) 04/05/19 22:40 Plt Count 127 K/mm3 (140-440) L 04/05/19 22:40 Lymph % (Auto) 29.2 % (13.4-35.0) 04/05/19 22:40 [place] % (Auto) 5.8 % (0.0-7.3) 04/05/19 22:40 Eos % (Auto) 1.5 % (0.0-4.3) 04/05/19 22:40 Baso % (Auto) 0.3 % (0.0-1.8) 04/05/19 22:40 Lymph # 2.4 K/mm3 (1.2-5.4) 04/05/19 22:40 [place] # 0.5 K/mm3 (0.0-0.8) 04/05/19 22:40 Eos # 0.1 K/mm3 (0.0-0.4) 04/05/19 22:40 Baso # 0.0 K/mm3 (0.0-0.1) 04/05/19 22:40 Seg Neutrophils % 63.2 % (40.0-70.0) 04/05/19 22:40 Seg Neutrophils # 5.1 K/mm3 (1.8-7.7) 04/05/19 22:40 PT 17.9 Sec. (12.2-14.9) H 04/05/19 22:40 INR 1.52 (0.87-1.13) H 04/05/19 22:40 APTT 29.2 Sec. (24.2-36.6) 04/05/19 22:40 Sodium 140 mmol/L (137-145) 04/05/19 22:40 Potassium 4.7 mmol/L (3.6-5.0) 04/05/19 22:40 Chloride 101.8 mmol/L (98-107) 04/05/19 22:40 Carbon Dioxide 25 mmol/L (22-30) 04/05/19 22:40 18 mmol/L 04/05/19 22:40 BUN 23 mg/dL (7-17) H 04/05/19 22:40 1.6 mg/dL (0.7-1.2) H 04/05/19 22:40 Estimated GFR 32 ml/min 04/05/19 22:40 14 % 04/05/19 22:40 Glucose 105 mg/dL (65-100) H 04/05/19 22:40 Calcium 9.7 mg/dL (8.4-10.2) 04/05/19 22:40 0.039 ng/mL (0.00-0.029) H 04/05/19 22:40 Triglycerides 374 mg/dL (2-149) H 04/05/19 22:40 Cholesterol 183 mg/dL (50-199) 04/05/19 22:40 92 mg/dL (50-130) 04/05/19 22:40 34 mg/dL (40-59) L 04/05/19 22:40 5.38 % 04/05/19 22:40 - Imaging and Cardiology EKG: image reviewed (65 bpm, SR) Chest x-ray: report reviewed ( No acute cardiopulmonary abnormality. No change when compared to study on 03/12/19), image reviewed Assessment and Plan Assessment and plan: 68-year-old female who is an ongoing smoker with history of coronary artery disease, VA s/pCABG, left upper extremity DVT on Eliquis, HTN, HLD, obesity, GERD, osteoarthritis, asthma, VA, DM presents [facility] with complaints of numbness to left fingers and hand, pain to the left arm radiating to left side of chest. She has EF of 60-65% seen on echo done 03/13/19. Slight elevation in troponin 1 at 0.039. Will admit as OBS to telemetry Acute CP PELON hx GEORGIE DVT on Eliquis ??R/O PE CAD hx VA s/p CABG HTN HLD DM GERD Obesity OA Asthma Tobacco abuse Plan: Continue supportive care Continuous telemetry monitoring VQ scan ordered to rule out PE; if negative patient may benefit from stress test given hx of CAD Will consult Neurology for left arm numbness Monitor BP Resume home antihypertensive meds: Norvasc 2.5 mg twice a day, lisinopril 10 mg daily POC BG monitoring SSI coverage ASA 81mg, Lipitor 40 mg daily at bedtime Albuterol when necessary Continue Pepcid Counseled for smoking cessation, start nicotine patch Lifestyle changes, may benefit from outpatient weight management program DVT PPx on Eliquis Advance Directives: No VTE prophylaxis?: Chemical Plan of care discussed with patient/family: Yes <MAC BOGGS - Last Filed: 04/06/19 22:24> History of Present Illness Date of admission: 04/06/19 03:53 Medications and Allergies Active Meds: Active Medications Acetaminophen (Tylenol) 650 mg PO Q4H PRN PRN Reason: Pain MILD(1-3)/Fever >100.5/[place]ONTES Albuterol (Proventil) 2.5 mg IH Q4HRT PRN PRN Reason: Shortness Of Breath Alprazolam (Xanax) 1 mg PO TID [facility] Amlodipine Besylate (Norvasc) 2.5 mg PO QDAY [facility] Last Admin: 04/06/19 15:10 Dose: 2.5 mg Documented by: Apixaban (Eliquis) 5 mg PO BID [facility]; Protocol Last Admin: 04/06/19 11:01 Dose: 5 mg Documented by: Aspirin (Baby Aspirin) 81 mg PO QDAY [facility] Atorvastatin Calcium (Lipitor) 40 mg PO QHS [facility] Dextrose (D50w (25gm) Syringe) 50 ml IV PRN PRN PRN Reason: Hypoglycemia Docusate Sodium (Colace) 100 mg PO BID [facility] Last Admin: 04/06/19 11:01 Dose: 100 mg Documented by: Famotidine (Pepcid) 10 mg PO BID [facility] Last Admin: 04/06/19 11:01 Dose: 10 mg Documented by: Insulin Human Regular (Humulin R) 0 units SUB-Q ACHS [facility]; Protocol Last Admin: 04/06/19 16:30 Dose: Not Given Documented by: Lisinopril (Zestril) 10 mg PO DAILY [facility] Last Admin: 04/06/19 15:10 Dose: 10 mg Documented by: Miscellaneous Medication (Icosapent Ethyl [Vascepa]) 2 gm PO BID [facility] Morphine Sulfate (Morphine) 2 mg IV Q4H PRN PRN Reason: Pain, Moderate (4-6) Stop: 04/06/19 23:59 Nicotine (Habitrol) 21 mg TD QDAY [facility] Last Admin: 04/06/19 11:01 Dose: 21 mg Documented by: Nitroglycerin (Nitrostat) 0.4 mg SL Q5M PRN PRN Reason: Chest Pain Ondansetron HCl (Zofran) 4 mg IV Q8H PRN PRN Reason: Nausea And Vomiting Oxycodone/Acetaminophen (Percocet 5/325) 1 tab PO Q6H PRN PRN Reason: Pain, Moderate (4-6) Last Admin: 04/06/19 16:16 Dose: 1 tab Documented by: Ranolazine (Ranexa Er) 1,000 mg PO BID [facility] Last Admin: 04/06/19 15:10 Dose: 1,000 mg Documented by: Sertraline HCl (Zoloft) 50 mg PO DAILY [facility] Last Admin: 04/06/19 15:02 Dose: 50 mg Documented by: Sodium Chloride (Sodium Chloride Flush Syringe 10 Ml) 10 ml IV BID [facility] Sodium Chloride (Sodium Chloride Flush Syringe 10 Ml) 10 ml IV PRN PRN PRN Reason: LINE FLUSH Topiramate (Topamax) 25 mg PO BID [facility] Last Admin: 04/06/19 11:01 Dose: 25 mg Documented by: Exam - Constitutional Vitals: Temp Pulse Resp BP Pulse Ox 97.7 F 71 18 176/64 92 04/06/19 19:37 04/06/19 19:36 04/06/19 19:36 04/06/19 19:36 04/06/19 19:36 Results - Labs CBC & Chem 7: 04/05/19 22:40 04/05/19 22:40 Labs: Laboratory Last Values WBC 8.1 K/mm3 (4.5-11.0) 04/05/19 22:40 RBC 4.01 M/mm3 (3.65-5.03) 04/05/19 22:40 Hgb 12.7 gm/dl (10.1-14.3) 04/05/19 22:40 Hct 36.8 % (30.3-42.9) 04/05/19 22:40 MCV 92 fl (79-97) 04/05/19 22:40 MCH 32 pg (28-32) 04/05/19 22:40 MCHC 34 % (30-34) 04/05/19 22:40 RDW 14.7 % (13.2-15.2) 04/05/19 22:40 Plt Count 127 K/mm3 (140-440) L 04/05/19 22:40 Lymph % (Auto) 29.2 % (13.4-35.0) 04/05/19 22:40 [place] % (Auto) 5.8 % (0.0-7.3) 04/05/19 22:40 Eos % (Auto) 1.5 % (0.0-4.3) 04/05/19 22:40 Baso % (Auto) 0.3 % (0.0-1.8) 04/05/19 22:40 Lymph # 2.4 K/mm3 (1.2-5.4) 04/05/19 22:40 [place] # 0.5 K/mm3 (0.0-0.8) 04/05/19 22:40 Eos # 0.1 K/mm3 (0.0-0.4) 04/05/19 22:40 Baso # 0.0 K/mm3 (0.0-0.1) 04/05/19 22:40 Seg Neutrophils % 63.2 % (40.0-70.0) 04/05/19 22:40 Seg Neutrophils # 5.1 K/mm3 (1.8-7.7) 04/05/19 22:40 PT 17.9 Sec. (12.2-14.9) H 04/05/19 22:40 INR 1.52 (0.87-1.13) H 04/05/19 22:40 APTT 29.2 Sec. (24.2-36.6) 04/05/19 22:40 Sodium 140 mmol/L (137-145) 04/05/19 22:40 Potassium 4.7 mmol/L (3.6-5.0) 04/05/19 22:40 Chloride 101.8 mmol/L (98-107) 04/05/19 22:40 Carbon Dioxide 25 mmol/L (22-30) 04/05/19 22:40 18 mmol/L 04/05/19 22:40 BUN 23 mg/dL (7-17) H 04/05/19 22:40 1.6 mg/dL (0.7-1.2) H 04/05/19 22:40 Estimated GFR 32 ml/min 04/05/19 22:40 14 % 04/05/19 22:40 Glucose 105 mg/dL (65-100) H 04/05/19 22:40 POC Glucose 131 (70-105) H 04/06/19 22:16 6.4 % (4-6) H 04/06/19 00:00 Calcium 9.7 mg/dL (8.4-10.2) 04/05/19 22:40 0.032 ng/mL (0.00-0.029) H 04/06/19 03:24 Triglycerides 374 mg/dL (2-149) H 04/05/19 22:40 Cholesterol 183 mg/dL (50-199) 04/05/19 22:40 92 mg/dL (50-130) 04/05/19 22:40 34 mg/dL (40-59) L 04/05/19 22:40 5.38 % 04/05/19 22:40 Assessment and Plan Assessment and plan: I personally discussed the patient with the DIRECTOR OF INDIVIDUAL GIVING-C. I agree with the above assessment and plan.
[2019-04-06] MEDS: PERCOCET 5/325 PO PRN ×2 (05:05→16:16)
[2019-04-06] MEDS ORDERED: PEPCID PO SCH (10:00)
[2019-04-06] MEDS: HABITROL TD SCH (11:01)
[2019-04-06] MEDS: ELIQUIS PO SCH ×2 (11:01→22:21)
[2019-04-06] MEDS: PEPCID PO SCH ×2 (11:01→23:00)
[2019-04-06] MEDS: TOPAMAX PO SCH ×2 (11:01→22:24)
[2019-04-06] MEDS: COLACE PO SCH ×2 (11:01→22:21)
[2019-04-06] MEDS: HumuLIN R SUB-Q SCH ×3 (13:35→23:00)
--- NOTE | 2019-04-06 14:14 | Event Note ---
Date: 04/06/19 Patient seen and examined. Was admitted today for chest pain. Cardiac enzymes are elevated. Continue with current management. Spoke with patient family member by the bedside.
[2019-04-06] MEDS ORDERED: ICOSAPENT ETHYL 2 GM PO SCH (14:30)
[2019-04-06] MEDS ORDERED: RANEXA 1000 MG PO SCH (14:30)
[2019-04-06] MEDS ORDERED: ELIQUIS PO SCH (15:00)
[2019-04-06] MEDS ORDERED: BABY ASPIRIN ONE (15:01)
[2019-04-06] MEDS: ZOLOFT PO SCH (15:02)
[2019-04-06] MEDS: NORVASC PO SCH (15:10)
[2019-04-06] MEDS: ZESTRIL PO SCH (15:10)
[2019-04-06] MEDS: RANEXA ER PO SCH ×2 (15:10→22:21)
[2019-04-06] MEDS: XANAX PO SCH (22:21)
[2019-04-06] MEDS: SODIUM CHLORIDE FLUSH SYRINGE 10 ML IV PRN (22:29)
[2019-04-07] MEDS: PERCOCET 5/325 PO PRN ×3 (00:23→15:49)
[2019-04-07] MEDS: SODIUM CHLORIDE FLUSH SYRINGE 10 ML IV SCH ×4 (03:29→23:16)
--- NOTE | 2019-04-07 06:56 | XRay Report ---
PROCEDURE: XR CHEST 1V AP TECHNIQUE: Chest radiograph single view. HISTORY: pre VQ scan COMPARISONS: 04/05/2019 . FINDINGS: Heart: The heart size is normal. There are sternotomy sutures.. Mediastinum/Vessels: Normal. Lungs/Pleural space: Normal. Bony thorax: No acute osseous abnormality. Life support devices: None. IMPRESSION: No acute cardiopulmonary abnormality. This document is electronically signed by Forrest Hdz MD., April 07 2019 06:54:04 AM ET
[2019-04-07 07:45] LABS: Basophils % (Auto) 0.2 % (0.0-1.8); Eosinophils # (Auto) 0.1 K/mm3 (0.0-0.4); Eosinophils % (Auto) 1.5 % (0.0-4.3); Hematocrit 38.2 % (30.3-42.9); Hemoglobin 13.2 gm/dl (10.1-14.3); Lymphocytes # (Auto) 2.4 K/mm3 (1.2-5.4); Lymphocytes % (Auto) 34.1 % (13.4-35.0); Mean Corpuscular HGB Conc 35 % (30-34); Mean Corpuscular Volume 90 fl (79-97); Monocytes # (Auto) 0.4 K/mm3 (0.0-0.8); Monocytes % (Auto) 6.3 % (0.0-7.3); Platelet Count 137 K/mm3 (140-440); Red Blood Count 4.24 M/mm3 (3.65-5.03); Red Cell Distribution Width 14.6 % (13.2-15.2)
[2019-04-07 08:14] LABS: Albumin 3.9 g/dL (3.9-5); Calcium 9.1 mg/dL (8.4-10.2)
--- NOTE | 2019-04-07 08:35 | Nuclear Medicine Report ---
LUNG SCAN, VENTILATION AND PERFUSION: History: Evaluate for pulmonary embolus, left arm pain, history of left arm blood clot. Technique: 5mci of Tc99m MAA was infused for the perfusion images. 15mci XE 133 gas was inhaled for the ventilatory images. Correlation is made with a chest x-ray dated 04/07/19. Findings: Inhalation of Xenon gas demonstrates a normal distribution of the activity throughout both lungs. The wash out phases show no focal retention of activity. After injection of Technetium 99m macroaggregated albumin gamma camera imaging of the lungs in multiple projections demonstrates normal pulmonary contours with a homogeneous distribution of activity. No focal areas of perfusion deficiency are identified. IMPRESSION: Low probability for pulmonary embolus.
--- NOTE | 2019-04-07 09:08 | Progress Note ---
Assessment and Plan Acute CP PELON hx GEORGIE DVT on Eliquis ??R/O PE CAD hx [place] s/p CABG HTN HLD DM GERD Obesity OA Asthma Tobacco abuse Plan: Commence patient on oxygen and nitroglycerin and aspirin, BB and morphine cardiology consult elevated cardiac enzymes VQ scan ordered to rule out PE; if negative patient may benefit from stress test given hx of CAD Will consult Neurology for left arm numbness Monitor BP Resume home antihypertensive meds: Norvasc 2.5 mg twice a day, lisinopril 10 mg daily POC BG monitoring SSI coverage ASA 81mg, Lipitor 40 mg daily at bedtime Albuterol when necessary Continue Pepcid Counseled for smoking cessation, start nicotine patch Lifestyle changes, may benefit from outpatient weight management program DVT PPx on Eliquis Advance Directives: No VTE prophylaxis?: Chemical Plan of care discussed with patient/family: Yes Subjective Date of service: 04/07/19 Principal diagnosis: chest pain, acute kidney injury, coronary artery disease, DM, GERD, asthma Interval history: Chest pain improving, denies any orthopnea present, distant. Objective - Exam Narrative Exam: Constitutional: Well-nourished well-developed. In no distress Head: Normocephalic atraumatic Eyes: Pupils are equal round and reactive to light Nose: No enlarged turbinates, no septal deviation. Mouth: Moist mucous membranes. Neck: Supple no thyromegaly. No bruit. No JVD Heart: Regular rate and rhythm, S1-S2 normal. No rubs murmurs or gallop Lungs: Clear to auscultation bilaterally. no rales or rhonchi Abdomen: Soft, nontender. Bowel sound are present. Extremities: No edema, no cyanosis, no clubbing. Neuro: Alert oriented Oriented x3. No focal sensory or motor deficit. Skin: No rashes or hyperpigmented spots Musculoskeletal system: No joint pain or swelling Hematological: No petechia or subcutanous hemorrhages. Immunological: No multiple septic spots on the skin Lymphatic: No generalized lymphadenopathy Psychiatry: Euthymic. Calm. - Constitutional Vitals: Vital Signs - 12hr 04/07/19 04/07/19 04/07/19 00:50 00:52 01:23 Temperature 97.5 F L Pulse Rate 71 Respiratory 20 20 Rate Blood Pressure 183/90 O2 Sat by Pulse 95 Oximetry 06/04/07/19 04/07/19 03:56 03:59 04:00 Temperature 97.6 F Pulse Rate 71 80 Respiratory 18 Rate Blood Pressure 147/76 O2 Sat by Pulse 95 Oximetry 04/07/19 04/07/19 04/07/19 08:00 08:05 08:20 Temperature 97.8 F Pulse Rate 70 70 71 Respiratory 18 Rate Blood Pressure 189/90 O2 Sat by Pulse 97 Oximetry - Labs CBC & Chem 7: 04/07/19 07:32 04/07/19 07:25 Labs: Abnormal lab results 04/06/19 04/07/19 04/07/19 Range/Units 22:16 06:55 07:25 MCHC (30-34) % Plt Count (140-440) K/mm3 Glucose 136 H (65-100) mg/dL POC Glucose 131 H 127 H (70-105) 04/07/19 04/07/19 Range/Units 07:32 08:27 MCHC 35 H (30-34) % Plt Count 137 L (140-440) K/mm3 Glucose (65-100) mg/dL POC Glucose 131 H (70-105)
[2019-04-07] MEDS: BABY ASPIRIN PO SCH (10:21)
[2019-04-07] MEDS: NORVASC PO SCH (10:21)
[2019-04-07] MEDS: ZOLOFT PO SCH (10:22)
[2019-04-07] MEDS: PEPCID PO SCH ×2 (10:22→23:11)
[2019-04-07] MEDS: COLACE PO SCH ×2 (10:22→23:12)
[2019-04-07] MEDS: HABITROL TD SCH (10:22)
[2019-04-07] MEDS: XANAX PO SCH ×3 (10:23→23:21)
[2019-04-07] MEDS: HumuLIN R SUB-Q SCH ×4 (10:44→23:13)
[2019-04-07] MEDS: ELIQUIS PO SCH ×2 (10:50→23:12)
[2019-04-07] MEDS: LOPRESSOR PO SCH ×2 (10:55→23:12)
[2019-04-07] MEDS: RANEXA ER PO SCH ×2 (11:28→23:12)
[2019-04-07] MEDS: SODIUM CHLORIDE FLUSH SYRINGE 10 ML IV PRN (11:29)
[2019-04-07] MEDS: ZESTRIL PO SCH (11:30)
[2019-04-07] MEDS: TOPAMAX PO SCH ×2 (11:32→23:12)
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
[2019-04-07] MEDS ORDERED: DECADRON IV ONE (13:24)
[2019-04-07] MEDS ORDERED: DECADRON IV SCH (14:00)
--- NOTE | 2019-04-07 14:05 | Consultation ---
History of Present Illness Consult date: 04/07/19 Consult reason: chest pain History of present illness: This is a 68-year old woman with a history of hypertension, coronary artery disease, remote bypass grafting, with PCI of the SVG to the distal LAD in 2016. She has a history of left upper extremity DVT and is on eliquis for oral anticoagulation. Patient presented with complaints of left arm pain and edema with left shoulder pain radiating to her chest. Chest x-ray is negative. A ventilation perfusion scan reports a low probability for PE. An EKG is benign, a normal sinus rhythm. Cardiac consultation has been requested. Past History Past Medical History: acute [place], diabetes, DVT (left upper extremity on Eliquis), GERD, hypertension, hyperlipidemia, other (asthma, osteo-arthritis, obesity. Says she was told she had 2 TIAs in the past but can't remember the symptoms.) Past Surgical History: appendectomy, abd. aortic aneurysm repair, CABG (and later stents, told she has collaterals helping despite later restenosis a pparently of the arteries with the stents), hysterectomy, hernia repair (bowel surgery), Other (right carotid endarterectomy 2007 at the time of coronary artery bypass surgery dose dated she also had a stent in the right carotid. Left carotid endarterectomy 2008. Sacroiliac joint surgery by description with pins and screws bilaterally in 2018. Carpal tunnel releases bilaterally for pain which helped but did not have numbness yet at that time. 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 denies: alcohol abuse, prescription drug abuse, IV drug use (never illicit drugs.) Family history: diabetes (mother), hypertension (both parents), stroke (both parents, thinks her father may have had a brain aneurysm.), other (epilepsy in her daughter.) Medications and Allergies Allergies Allergy/AdvReac Type Severity Reaction Status Date / Time moxifloxacin HCl Allergy Swelling Verified 05/08/14 08:59 [From Avelox] Home Medications Medication Instructions Recorded Confirmed Last Taken Type HYDROcodone/ACETAMINOPHEN 1 each PO DAILY 05/08/14 04/06/19 11/01/15 History [Hydrocodon-Acetaminophn 10-325] 1 tab Lisinopril 10 mg PO DAILY 05/08/14 04/06/19 11/03/15 History 10mg Nitroglycerin [Nitrostat] 0.4 mg PO PRN PRN 05/08/14 04/06/19 11/02/15 History 0.4mg Icosapent Ethyl [Vascepa] 2 gm PO BID 11/04/15 04/06/19 11/03/15 History 2gm NexIUM 40 mg PO DAILY 11/04/15 04/06/19 11/03/15 History 40mg Promethazine [Phenergan] 25 mg PO PRN PRN 11/04/15 04/06/19 11/02/15 History 25mg Ranexa 1,000 mg PO BID 11/04/15 04/06/19 11/03/15 History 1000mg Apixaban [Eliquis] 5 mg PO BID 180 Days #360 tablet 03/13/19 04/06/19 Unknown Rx Apixaban [Eliquis] 10 mg PO BID 7 Days #14 tablet 03/13/19 04/06/19 Unknown Rx Aspirin EC 325 mg PO DAILY #30 tablet 03/13/19 04/06/19 Unknown Rx HYDROcodone/APAP 5-325 [[place] 1 each PO Q6HR PRN #12 tablet 03/13/19 04/06/19 Unknown Rx 5-325 mg TAB] Lisinopril [Zestril TAB] 10 mg PO DAILY #30 tablet 03/13/19 04/06/19 Unknown Rx Nicotine [Habitrol] 21 mg TD QDAY #30 patch 03/13/19 04/06/19 Unknown Rx Nitroglycerin [Nitrostat] 0.4 mg SL Q5M PRN tablet 03/13/19 04/06/19 Unknown Rx Ranolazine ER [Ranexa ER] 1,000 mg PO BID #60 tablet 03/13/19 04/06/19 Unknown Rx Sertraline [Zoloft] 50 mg PO DAILY #30 tablet 03/13/19 04/06/19 Unknown Rx Topiramate [Topamax] 25 mg PO BID #60 tablet 03/13/19 04/06/19 Unknown Rx ALPRAZolam [Xanax TAB] 1 tab PO TID 04/06/19 04/06/19 Unknown History Active Meds: Active Medications Acetaminophen (Tylenol) 650 mg PO Q4H PRN PRN Reason: Pain MILD(1-3)/Fever >100.5/MONTES Albuterol (Proventil) 2.5 mg IH Q4HRT PRN PRN Reason: Shortness Of Breath Alprazolam (Xanax) 1 mg PO TID [facility] Last Admin: 04/07/19 10:23 Dose: 1 mg Documented by: Alprazolam (Xanax) 2 mg PO ONCE ONE Stop: 04/07/19 15:01 Amlodipine Besylate (Norvasc) 2.5 mg PO QDAY [facility] Last Admin: 04/07/19 10:21 Dose: 2.5 mg Documented by: Apixaban (Eliquis) 5 mg PO BID [facility]; Protocol Last Admin: 04/07/19 10:50 Dose: 5 mg Documented by: Aspirin (Baby Aspirin) 81 mg PO QDAY [facility] Last Admin: 04/07/19 10:21 Dose: 81 mg Documented by: Atorvastatin Calcium (Lipitor) 40 mg PO QHS [facility] Last Admin: 04/06/19 22:21 Dose: 40 mg Documented by: Dextrose (D50w (25gm) Syringe) 50 ml IV PRN PRN PRN Reason: Hypoglycemia Docusate Sodium (Colace) 100 mg PO BID [facility] Last Admin: 04/07/19 10:22 Dose: 100 mg Documented by: Famotidine (Pepcid) 10 mg PO BID [facility] Last Admin: 04/07/19 10:22 Dose: 10 mg Documented by: Insulin Human Regular (Humulin R) 0 units SUB-Q ACHS [facility]; Protocol Last Admin: 04/07/19 10:45 Dose: Not Given Documented by: Lisinopril (Zestril) 10 mg PO DAILY [facility] Last Admin: 04/07/19 11:30 Dose: 10 mg Documented by: Methylprednisolone (Medrol) 4 mg PO QDAY [facility] Metoprolol Tartrate (Lopressor) 50 mg PO BID [facility] Last Admin: 04/07/19 10:55 Dose: 50 mg Documented by: Miscellaneous Medication (Icosapent Ethyl [Vascepa]) 2 gm PO BID [facility] Nicotine (Habitrol) 21 mg TD QDAY [facility] Last Admin: 04/07/19 10:22 Dose: 21 mg Documented by: Nitroglycerin (Nitrostat) 0.4 mg SL Q5M PRN PRN Reason: Chest Pain Ondansetron HCl (Zofran) 4 mg IV Q8H PRN PRN Reason: Nausea And Vomiting Oxycodone/Acetaminophen (Percocet 5/325) 1 tab PO Q6H PRN PRN Reason: Pain, Moderate (4-6) Last Admin: 04/07/19 10:16 Dose: 1 tab Documented by: Pantoprazole Sodium (Protonix) 20 mg PO QDAY [facility] Stop: 04/19/19 08:00 Ranolazine (Ranexa Er) 1,000 mg PO BID [facility] Last Admin: 04/07/19 11:28 Dose: 1,000 mg Documented by: Sertraline HCl (Zoloft) 50 mg PO DAILY [facility] Last Admin: 04/07/19 10:22 Dose: 50 mg Documented by: Sodium Chloride (Sodium Chloride Flush Syringe 10 Ml) 10 ml IV BID [facility] Last Admin: 04/07/19 11:33 Dose: 10 ml Documented by: Sodium Chloride (Sodium Chloride Flush Syringe 10 Ml) 10 ml IV PRN PRN PRN Reason: LINE FLUSH Last Admin: 04/07/19 11:29 Dose: 10 ml Documented by: Topiramate (Topamax) 25 mg PO BID [facility] Last Admin: 04/07/19 11:32 Dose: 25 mg Documented by: Physical Examination Vital Signs Temp Pulse Resp BP Pulse Ox 97.8 F 66 18 149/63 97 04/05/19 20:55 04/05/19 20:55 04/05/19 20:55 04/05/19 20:55 04/05/19 20:55 General appearance: no acute distress HEENT: Positive: PERRL Neck: Positive: trachea midline Cardiac: Positive: Reg Rate and Rhythm Lungs: Positive: Decreased Breath Sounds Neuro: Positive: Grossly Intact Extremities: Absent: edema Results 04/07/19 07:32 04/07/19 07:25 Cardiac Enzymes 04/07/19 Range/Units 07:25 AST 13 (5-40) units/L CBC 04/07/19 Range/Units 07:32 WBC 6.9 (4.5-11.0) K/mm3 RBC 4.24 (3.65-5.03) M/mm3 Hgb 13.2 (10.1-14.3) gm/dl Hct 38.2 (30.3-42.9) % Plt Count 137 L (140-440) K/mm3 Lymph # 2.4 (1.2-5.4) K/mm3 [place]minn # 0.4 (0.0-0.8) K/mm3 Eos # 0.1 (0.0-0.4) K/mm3 Baso # 0.0 (0.0-0.1) K/mm3 Comprehensive Metabolic Panel 04/07/19 Range/Units 07:25 Sodium 140 (137-145) mmol/L Potassium 4.0 (3.6-5.0) mmol/L Chloride 100.9 (98-107) mmol/L Carbon Dioxide 25 (22-30) mmol/L BUN 14 (7-17) mg/dL Creatinine 1.2 (0.7-1.2) mg/dL Glucose 136 H (65-100) mg/dL Calcium 9.1 (8.4-10.2) mg/dL AST 13 (5-40) units/L ALT 13 (7-56) units/L Alkaline Phosphatase 102 (35-129) units/L Total Protein 6.6 (6.3-8.2) g/dL Albumin 3.9 (3.9-5) g/dL Assessment and Plan Cervical radiculopathy Atypical chest pain Hx of LUE DVT on eliquis as an outpatient Hypertension Hx of CAD with prior CABG Hyperlipidemia
[2019-04-07] MEDS ORDERED: XANAX PO ONE (15:00)
[2019-04-08] MEDS: HumuLIN R SUB-Q SCH ×4 (08:14→23:13)
[2019-04-08] MEDS: PROTONIX PO SCH (09:10)
[2019-04-08] MEDS: BABY ASPIRIN PO SCH (09:10)
[2019-04-08] MEDS: RANEXA ER PO SCH ×2 (09:11→23:11)
[2019-04-08] MEDS: PEPCID PO SCH ×2 (09:11→23:12)
[2019-04-08] MEDS: ZOLOFT PO SCH (09:12)
[2019-04-08] MEDS: ZESTRIL PO SCH (09:12)
[2019-04-08] MEDS: HABITROL TD SCH (09:13)
[2019-04-08] MEDS: TOPAMAX PO SCH ×2 (09:13→23:12)
[2019-04-08] MEDS: MEDROL PO SCH (09:13)
[2019-04-08] MEDS: COLACE PO SCH ×2 (09:13→23:12)
[2019-04-08] MEDS: XANAX PO SCH ×3 (09:14→23:12)
[2019-04-08] MEDS: ELIQUIS PO SCH ×2 (09:14→23:11)
[2019-04-08] MEDS: LOPRESSOR PO SCH ×2 (09:21→23:17)
[2019-04-08] MEDS: SODIUM CHLORIDE FLUSH SYRINGE 10 ML IV SCH ×2 (09:21→23:18)
[2019-04-08] MEDS: NORVASC PO SCH (10:35)
--- NOTE | 2019-04-08 11:32 | Progress Note ---
Assessment and Plan Cervical radiculopathy Atypical chest pain Hx of LUE DVT on eliquis as an outpatient Hypertension Hx of CAD with prior CABG Hyperlipidemia Recommend: Medical therapy for coronary artery disease. Otherwise, conservative cardiac management. Subjective Date of service: 04/08/19 Principal diagnosis: chest pain, acute kidney injury, coronary artery disease, DM, GERD, asthma Interval history: Patient is resting in bed comfortably. She denies chest pain and shortness of breath. Objective Vital Signs Temp Pulse Resp BP Pulse Ox 04/08/19 09:21 59 L 132/62 04/08/19 09:12 59 L 132/62 04/08/19 08:32 98.2 F 59 L 16 132/62 95 04/08/19 05:33 97.8 F 64 20 105/55 90 04/07/19 23:12 151/70 04/07/19 22:37 98.1 F 61 20 102/54 92 04/07/19 15:49 16 04/07/19 15:42 61 151/70 95 - Physical Examination General: No Apparent Distress HEENT: Positive: PERRL Neck: Positive: trachea midline Cardiac: Positive: Reg Rate and Rhythm Lungs: Positive: Decreased Breath Sounds Neuro: Positive: Grossly Intact Extremities: Absent: edema
[2019-04-08] MEDS: ALLBEE WITH C PO SCH ×2 (13:23→23:11)
[2019-04-08] MEDS: PERCOCET 5/325 PO PRN (15:12)
--- NOTE | 2019-04-08 18:53 | Progress Note ---
Assessment and Plan Assessment and plan: --Cervical radiculopathy; adenopathy workup is in progress Neurology evaluation and recommendations noted and appreciated Pain medications, physical therapy occupational therapy Following moderate --Atypical chest pain; probably noncardiac, secondary to radiculopathy Serial cardiac enzymes, cardiac medications, cardiology evaluation --History of lower extremity DVT; continue anticoagulation with the liquids --History of hypertension; moderate control Continue current antihypertensives and when necessary medications --History of coronary artery disease; status post CABG Continue current cardiac medications, cardiology following --Acute kidney injury; secondary to vasomotor nephropathy, present on admission Function improved, back to baseline, avoid nephrotoxins --Dyslipidemia; stable on lipid-lowering medications --DVT prophylaxis; Lovenox --Full code; Following a workup, neurology recommendations Monitor closely and adjust management as needed Plan of care is reviewed with the patient and the family member at the bedside; History Interval history: Patient examined medical records reviewe 68-year-old female with history of coronary artery disease S/P CABG, left upper extremity DVT on Eliquis, HTN, HLD, obesity, GERD, osteoarthritis, asthma, [place], DM presents [facility] ED with complaints of numbness to left fingers and hand, pain to the left arm radiating to left side of chest. Pt states that she has left arm pain that radiates to left side of chest for the past 4 days. Patient continues to have numbness of the left hand and Patient reports minimal improvement,Workup is in progress Neurology evaluation and recommendations noted and appreciated Vital signs noted Hospitalist Physical - Constitutional Vitals: Temp Pulse Resp BP Pulse Ox 98.3 F 64 16 151/59 93 04/08/19 11:10 04/08/19 11:10 04/08/19 11:10 04/08/19 11:10 04/08/19 11:10 General appearance: Present: no acute distress, well-nourished, obese - EENT Eyes: Present: PERRL, EOM intact - Neck Neck: Present: supple, normal ROM - Respiratory Respiratory effort: normal Respiratory: bilateral: diminished, negative: rales, rhonchi, wheezing - Cardiovascular Rhythm: regular Heart Sounds: Present: S1 & S2 - Extremities Extremities: no ischemia, No edema - Abdominal General gastrointestinal: soft, non-tender, non-distended, normal bowel sounds - Integumentary Integumentary: Present: clear, warm - Psychiatric Psychiatric: appropriate mood/affect, cooperative - Neurologic Neurologic: CNII-XII intact, moves all extremities Results - Labs CBC & Chem 7: 04/07/19 07:32 04/07/19 07:25 Labs: Laboratory Last Values WBC 6.9 K/mm3 (4.5-11.0) 04/07/19 07:32 RBC 4.24 M/mm3 (3.65-5.03) 04/07/19 07:32 Hgb 13.2 gm/dl (10.1-14.3) 04/07/19 07:32 Hct 38.2 % (30.3-42.9) 04/07/19 07:32 MCV 90 fl (79-97) 04/07/19 07:32 MCH 31 pg (28-32) 04/07/19 07:32 MCHC 35 % (30-34) H 04/07/19 07:32 RDW 14.6 % (13.2-15.2) 04/07/19 07:32 Plt Count 137 K/mm3 (140-440) L 04/07/19 07:32 Lymph % (Auto) 34.1 % (13.4-35.0) 04/07/19 07:32 [place] % (Auto) 6.3 % (0.0-7.3) 04/07/19 07:32 Eos % (Auto) 1.5 % (0.0-4.3) 04/07/19 07:32 Baso % (Auto) 0.2 % (0.0-1.8) 04/07/19 07:32 Lymph # 2.4 K/mm3 (1.2-5.4) 04/07/19 07:32 [place] # 0.4 K/mm3 (0.0-0.8) 04/07/19 07:32 Eos # 0.1 K/mm3 (0.0-0.4) 04/07/19 07:32 Baso # 0.0 K/mm3 (0.0-0.1) 04/07/19 07:32 Seg Neutrophils % 57.9 % (40.0-70.0) 04/07/19 07:32 Seg Neutrophils # 4.0 K/mm3 (1.8-7.7) 04/07/19 07:32 PT 17.9 Sec. (12.2-14.9) H 04/05/19 22:40 INR 1.52 (0.87-1.13) H 04/05/19 22:40 APTT 29.2 Sec. (24.2-36.6) 04/05/19 22:40 Sodium 140 mmol/L (137-145) 04/07/19 07:25 Potassium 4.0 mmol/L (3.6-5.0) 04/07/19 07:25 Chloride 100.9 mmol/L (98-107) 04/07/19 07:25 Carbon Dioxide 25 mmol/L (22-30) 04/07/19 07:25 18 mmol/L 04/07/19 07:25 BUN 14 mg/dL (7-17) 04/07/19 07:25 1.2 mg/dL (0.7-1.2) 04/07/19 07:25 Estimated GFR 45 ml/min 04/07/19 07:25 12 % 04/07/19 07:25 Glucose 136 mg/dL (65-100) H 04/07/19 07:25 POC Glucose 192 (70-105) H 04/08/19 18:10 6.4 % (4-6) H 04/06/19 00:00 Calcium 9.1 mg/dL (8.4-10.2) 04/07/19 07:25 0.40 mg/dL (0.1-1.2) 04/07/19 07:25 AST 13 units/L (5-40) 04/07/19 07:25 ALT 13 units/L (7-56) 04/07/19 07:25 102 units/L (35-129) 04/07/19 07:25 0.032 ng/mL (0.00-0.029) H 04/06/19 03:24 6.6 g/dL (6.3-8.2) 04/07/19 07:25 3.9 g/dL (3.9-5) 04/07/19 07:25 1.4 % 04/07/19 07:25 Triglycerides 374 mg/dL (2-149) H 04/05/19 22:40 Cholesterol 183 mg/dL (50-199) 04/05/19 22:40 92 mg/dL (50-130) 04/05/19 22:40 34 mg/dL (40-59) L 04/05/19 22:40 5.38 % 04/05/19 22:40 Active Medications - Current Medications Current Medications: Generic Name Dose Route Start Last Admin Trade Name Freq PRN Reason Stop Dose Admin Acetaminophen 650 mg 04/06/19 00:17 Tylenol PO Q4H PRN Pain MILD(1-3)/Fever >100.5/MONTES Albuterol 2.5 mg 04/06/19 00:33 Proventil IH Q4HRT PRN Shortness Of Breath Alprazolam 1 mg 04/06/19 20:00 04/08/19 15:20 Xanax PO 1 mg TID JOÃO Administration Amlodipine Besylate 2.5 mg 04/06/19 10:00 04/08/19 10:35 Norvasc PO Not Given QDAY JOÃO Apixaban 5 mg 04/06/19 10:00 04/08/19 09:14 Eliquis PO 5 mg BID JOÃO Administration Protocol Aspirin 81 mg 04/07/19 10:00 04/08/19 09:10 Baby Aspirin PO 81 mg QDAY JOÃO Administration Atorvastatin Calcium 40 mg 04/06/19 22:00 04/07/19 23:12 Lipitor PO 40 mg QHS JOÃO Administration Dextrose 50 ml 04/06/19 00:32 D50w (25gm) Syringe IV PRN PRN Hypoglycemia Docusate Sodium 100 mg 04/06/19 10:00 04/08/19 09:13 Colace PO 100 mg BID JOÃO Administration Famotidine 10 mg 04/06/19 10:00 04/08/19 09:11 Pepcid PO 10 mg BID JOÃO Administration Insulin Human Regular 0 units 04/06/19 07:30 04/08/19 18:14 Humulin R SUB-Q 2 units ACHS JOÃO Administration Protocol Lisinopril 10 mg 04/06/19 10:00 04/08/19 09:12 Zestril PO 10 mg DAILY JOÃO Administration Methylprednisolone 4 mg 04/08/19 10:00 04/08/19 09:13 Medrol PO 4 mg QDAY JOÃO Administration Metoprolol Tartrate 50 mg 04/07/19 11:00 04/08/19 09:21 Lopressor PO Not Given BID JOÃO Miscellaneous Medication 2 gm 04/06/19 14:30 Icosapent Ethyl [Vascepa] PO BID JOÃO Nicotine 21 mg 04/06/19 10:00 04/08/19 09:13 Habitrol TD 21 mg QDAY JOÃO Administration Nitroglycerin 0.4 mg 04/05/19 23:59 Nitrostat SL Q5M PRN Chest Pain Ondansetron HCl 4 mg 04/06/19 00:17 04/08/19 05:04 Zofran IV 4 mg Q8H PRN Administration Nausea And Vomiting Oxycodone/Acetaminophen 1 tab 04/06/19 00:17 04/08/19 15:12 Percocet 5/325 PO 1 tab Q6H PRN Administration Pain, Moderate (4-6) Pantoprazole Sodium 20 mg 04/08/19 10:00 04/08/19 09:10 Protonix PO 04/19/19 08:00 20 mg QDAY JOÃO Administration Ranolazine 1,000 mg 04/06/19 15:00 04/08/19 09:11 Ranexa Er PO 1,000 mg BID JOÃO Administration Sertraline HCl 50 mg 04/06/19 15:00 04/08/19 09:12 Zoloft PO 50 mg DAILY JOÃO Administration Sodium Chloride 10 ml 04/06/19 10:00 04/08/19 09:21 Sodium Chloride Flush Syringe 10 Ml IV 10 ml BID JOÃO Administration Sodium Chloride 10 ml 04/06/19 00:17 04/07/19 11:29 Sodium Chloride Flush Syringe 10 Ml IV 10 ml PRN PRN Administration LINE FLUSH Topiramate 25 mg 04/06/19 10:00 04/08/19 09:13 Topamax PO 25 mg BID JOÃO Administration Vitamin B Complex/Vitamin C 1 each 04/08/19 11:00 04/08/19 13:23 Allbee With C PO 1 each BID JOÃO Administration Nutrition/Malnutrition Assess - Dietary Evaluation Nutrition/Malnutrition Findings: Nutrition Notes Start: 04/07/19 14:49 Freq: Status: Active Protocol: Document 04/08/19 15:50 PHILIP (Rec: 04/08/19 15:52 [facility]ILIP [id number]) Nutrition Notes Initial or Follow up Brief Note Subjective/Other Information Pt sleeping soundly at time of visit (12:48). Consumed 75% breakfast this am. Nutrition Intervention Follow-Up By: 04/09/19 Additional Comments F/U: diet education (High TG Nutrition therapy; Low Na therapy)
[2019-04-08] MEDS ORDERED: PHENERGAN PO PRN (21:04)
[2019-04-09] MEDS: PERCOCET 5/325 PO PRN ×2 (06:39→15:58)
[2019-04-09] MEDS: HumuLIN R SUB-Q SCH ×4 (07:59→21:42)
--- NOTE | 2019-04-09 08:21 | Magnetic Resonance Report ---
PROCEDURE: MR CERVICAL SPINE WO CON TECHNIQUE: Magnetic resonance imaging of the cervical spine was performed using standard pulse seque nces without contrast material. HISTORY: pain left shoulder to thumb, index and middle finger COMPARISONS: None . FINDINGS: The imaged portion of the posterior fossa is unremarkable. The cervical spinal cord is normal in sig nal characteristics. No cord edema. There is pulsation artifact. No epidural space abnormality. T he paraspinal soft tissues including imaged mucosal spaces of the neck are unremarkable. Vertebral body heights throughout the cervical spine are preserved. Marrow signal is within normal l imits. No listhesis. At C2-C3 there is mild uncovertebral joint hypertrophy contributing to mild bilateral neuro foraminal narrowing. No significant spinal canal stenosis. At C3-C4 there is a small posterior disc osteophyte complex with uncovertebral joint hypertrophy, asy mmetric on the left resulting in moderate left and mild right neural foraminal stenosis. At C4- C5 there is mild left greater than right uncovertebral joint hypertrophy resulting in mild lef t greater than right neural foraminal stenosis. At C5-C6 there is a posterior disc osteophyte complex with asymmetric left greater than right uncover tebral joint hypertrophy resulting in moderate spinal canal stenosis and indentation of the left eryn cord. There is moderate left greater than right neural foraminal stenosis. At C6-C7 there is a posterior disc osteophyte complex with asymmetric left greater than right uncover tebral joint hypertrophy and mild to moderate spinal canal stenosis. Moderate bilateral neural forami nal narrowing. AT C7-Z8akfew is no significant spinal canal or neural foraminal narrowing. IMPRESSION: Multilevel sequela of disc degeneration are most significant at C5-C6 and C6-C7 where there is modera te spinal canal and neural foraminal narrowing, as detailed above. This document is electronically signed by Jay Palma MD., April 09 2019 08:19:14 AM ET
--- NOTE | 2019-04-09 09:21 | Progress Note ---
Assessment and Plan Assessment and plan: --Cervical radiculopathy; adenopathy workup is in progress Neurology evaluation and recommendations noted and appreciated Pain medications, physical therapy occupational therapy Following moderate --Carotid artery stenosis; patient is already on antiplatelets, statins Consult vascular as needed --Atypical chest pain; probably noncardiac, secondary to radiculopathy Serial cardiac enzymes, cardiac medications, cardiology evaluation --History of lower extremity DVT; continue anticoagulation with the liquids --History of hypertension; moderate control Continue current antihypertensives and when necessary medications --History of coronary artery disease; status post CABG Continue current cardiac medications, cardiology following --Acute kidney injury; secondary to vasomotor nephropathy, present on admission Function improved, back to baseline, avoid nephrotoxins --Dyslipidemia; stable on lipid-lowering medications --DVT prophylaxis; Lovenox --Full code; Following a workup, neurology recommendations Monitor closely and adjust management as needed Plan of care is reviewed with the patient and the family member at the bedside; History Interval history: Patient seen and examined medical records reviewed Complaints of left upper extremity pain Neuro Workup is in progress Vital signs noted Hospitalist Physical - Constitutional Vitals: Temp Pulse Resp BP Pulse Ox 97.5 F L 74 16 165/70 93 04/09/19 08:30 04/09/19 08:30 04/09/19 08:30 04/09/19 08:30 04/09/19 08:30 General appearance: Present: no acute distress, well-nourished, obese - EENT Eyes: Present: PERRL, EOM intact - Neck Neck: Present: supple, normal ROM - Respiratory Respiratory effort: normal Respiratory: bilateral: diminished, negative: rales, rhonchi, wheezing - Cardiovascular Rhythm: regular Heart Sounds: Present: S1 & S2 - Extremities Extremities: no ischemia, abnormal (Lt UE pain on movement) - Abdominal General gastrointestinal: soft, non-tender, non-distended, normal bowel sounds - Integumentary Integumentary: Present: clear, warm - Psychiatric Psychiatric: appropriate mood/affect, cooperative - Neurologic Neurologic: CNII-XII intact, moves all extremities Results - Labs CBC & Chem 7: 04/07/19 07:32 04/07/19 07:25 Labs: Laboratory Last Values WBC 6.9 K/mm3 (4.5-11.0) 04/07/19 07:32 RBC 4.24 M/mm3 (3.65-5.03) 04/07/19 07:32 Hgb 13.2 gm/dl (10.1-14.3) 04/07/19 07:32 Hct 38.2 % (30.3-42.9) 04/07/19 07:32 MCV 90 fl (79-97) 04/07/19 07:32 MCH 31 pg (28-32) 04/07/19 07:32 MCHC 35 % (30-34) H 04/07/19 07:32 RDW 14.6 % (13.2-15.2) 04/07/19 07:32 Plt Count 137 K/mm3 (140-440) L 04/07/19 07:32 Lymph % (Auto) 34.1 % (13.4-35.0) 04/07/19 07:32 [place] % (Auto) 6.3 % (0.0-7.3) 04/07/19 07:32 Eos % (Auto) 1.5 % (0.0-4.3) 04/07/19 07:32 Baso % (Auto) 0.2 % (0.0-1.8) 04/07/19 07:32 Lymph # 2.4 K/mm3 (1.2-5.4) 04/07/19 07:32 [place] # 0.4 K/mm3 (0.0-0.8) 04/07/19 07:32 Eos # 0.1 K/mm3 (0.0-0.4) 04/07/19 07:32 Baso # 0.0 K/mm3 (0.0-0.1) 04/07/19 07:32 Seg Neutrophils % 57.9 % (40.0-70.0) 04/07/19 07:32 Seg Neutrophils # 4.0 K/mm3 (1.8-7.7) 04/07/19 07:32 PT 17.9 Sec. (12.2-14.9) H 04/05/19 22:40 INR 1.52 (0.87-1.13) H 04/05/19 22:40 APTT 29.2 Sec. (24.2-36.6) 04/05/19 22:40 Sodium 140 mmol/L (137-145) 04/07/19 07:25 Potassium 4.0 mmol/L (3.6-5.0) 04/07/19 07:25 Chloride 100.9 mmol/L (98-107) 04/07/19 07:25 Carbon Dioxide 25 mmol/L (22-30) 04/07/19 07:25 18 mmol/L 04/07/19 07:25 BUN 14 mg/dL (7-17) 04/07/19 07:25 1.2 mg/dL (0.7-1.2) 04/07/19 07:25 Estimated GFR 45 ml/min 04/07/19 07:25 12 % 04/07/19 07:25 Glucose 136 mg/dL (65-100) H 04/07/19 07:25 POC Glucose 104 (70-105) 04/09/19 08:38 6.4 % (4-6) H 04/06/19 00:00 Calcium 9.1 mg/dL (8.4-10.2) 04/07/19 07:25 0.40 mg/dL (0.1-1.2) 04/07/19 07:25 AST 13 units/L (5-40) 04/07/19 07:25 ALT 13 units/L (7-56) 04/07/19 07:25 102 units/L (35-129) 04/07/19 07:25 0.032 ng/mL (0.00-0.029) H 04/06/19 03:24 6.6 g/dL (6.3-8.2) 04/07/19 07:25 3.9 g/dL (3.9-5) 04/07/19 07:25 1.4 % 04/07/19 07:25 Triglycerides 374 mg/dL (2-149) H 04/05/19 22:40 Cholesterol 183 mg/dL (50-199) 04/05/19 22:40 92 mg/dL (50-130) 04/05/19 22:40 34 mg/dL (40-59) L 04/05/19 22:40 5.38 % 04/05/19 22:40 Active Medications - Current Medications Current Medications: Generic Name Dose Route Start Last Admin Trade Name [place] PRN Reason Stop Dose Admin Acetaminophen 650 mg 04/06/19 00:17 Tylenol PO Q4H PRN Pain MILD(1-3)/Fever >100.5/MONTES Albuterol 2.5 mg 04/06/19 00:33 Proventil IH Q4HRT PRN Shortness Of Breath Alprazolam 1 mg 04/06/19 20:00 04/08/19 23:12 Xanax PO 1 mg TID JOÃO Administration Amlodipine Besylate 2.5 mg 04/06/19 10:00 04/08/19 10:35 Norvasc PO Not Given QDAY JOÃO Apixaban 5 mg 04/06/19 10:00 04/08/19 23:11 Eliquis PO 5 mg BID JOÃO Administration Protocol Aspirin 81 mg 04/07/19 10:00 04/08/19 09:10 Baby Aspirin PO 81 mg QDAY [facility] Administration Atorvastatin Calcium 40 mg 04/06/19 22:00 04/08/19 23:11 Lipitor PO 40 mg QHS JOÃO Administration Dextrose 50 ml 04/06/19 00:32 D50w (25gm) Syringe IV PRN PRN Hypoglycemia Docusate Sodium 100 mg 04/06/19 10:00 04/08/19 23:12 Colace PO 100 mg BID JOÃO Administration Famotidine 10 mg 04/06/19 10:00 04/08/19 23:12 Pepcid PO 10 mg BID JOÃO Administration Insulin Human Regular 0 units 04/06/19 07:30 04/08/19 23:13 Humulin R SUB-Q Not Given ACHS [facility] Protocol Lisinopril 10 mg 04/06/19 10:00 04/08/19 09:12 Zestril PO 10 mg DAILY JOÃO Administration Methylprednisolone 4 mg 04/08/19 10:00 04/08/19 09:13 Medrol PO 4 mg QDAY [facility] Administration Metoprolol Tartrate 50 mg 04/07/19 11:00 04/08/19 23:17 Lopressor PO Not Given BID [facility] Miscellaneous Medication 2 gm 04/06/19 14:30 Icosapent Ethyl [Vascepa] PO BID [facility] Nicotine 21 mg 04/06/19 10:00 04/08/19 09:13 Habitrol TD 21 mg QDAY [facility] Administration Nitroglycerin 0.4 mg 04/05/19 23:59 Nitrostat SL Q5M PRN Chest Pain Ondansetron HCl 4 mg 04/06/19 00:17 04/08/19 05:04 Zofran IV 4 mg Q8H PRN Administration Nausea And Vomiting Oxycodone/Acetaminophen 1 tab 04/06/19 00:17 04/09/19 06:39 Percocet 5/325 PO 1 tab Q6H PRN Administration Pain, Moderate (4-6) Pantoprazole Sodium 20 mg 04/08/19 10:00 04/08/19 09:10 Protonix PO 04/19/19 08:00 20 mg QDAY JOÃO Administration Promethazine HCl 25 mg 04/08/19 21:04 Phenergan PO Q6H PRN Nausea And Vomiting Ranolazine 1,000 mg 04/06/19 15:00 04/08/19 23:11 Ranexa Er PO 1,000 mg BID JOÃO Administration Sertraline HCl 50 mg 04/06/19 15:00 04/08/19 09:12 Zoloft PO 50 mg DAILY JOÃO Administration Sodium Chloride 10 ml 04/06/19 10:00 04/08/19 23:18 Sodium Chloride Flush Syringe 10 Ml IV 10 ml BID JOÃO Administration Sodium Chloride 10 ml 04/06/19 00:17 04/07/19 11:29 Sodium Chloride Flush Syringe 10 Ml IV 10 ml PRN PRN Administration LINE FLUSH Topiramate 25 mg 04/06/19 10:00 04/08/19 23:12 Topamax PO 25 mg BID JOÃO Administration Vitamin B Complex/Vitamin C 1 each 04/08/19 11:00 04/08/19 23:11 Allbee With C PO 1 each BID JOÃO Administration Nutrition/Malnutrition Assess - Dietary Evaluation Nutrition/Malnutrition Findings: Nutrition Notes Start: 04/07/19 14:49 Freq: Status: Active Protocol: Document 04/08/19 15:50 [facility]Rec: 04/08/19 15:52 [facility] [email or web address]) Nutrition Notes Initial or Follow up Brief Note Subjective/Other Information Pt sleeping soundly at time of visit (12:48). Consumed 75% breakfast this am. Nutrition Intervention Follow-Up By: 04/09/19 Additional Comments F/U: diet education (High TG Nutrition therapy; Low Na therapy)
[2019-04-09] MEDS: COLACE PO SCH ×2 (10:00→21:41)
[2019-04-09] MEDS: RANEXA ER PO SCH ×2 (10:01→21:41)
[2019-04-09] MEDS: HABITROL TD SCH (10:01)
[2019-04-09] MEDS: XANAX PO SCH ×3 (10:02→21:42)
[2019-04-09] MEDS: ELIQUIS PO SCH ×2 (10:02→21:41)
[2019-04-09] MEDS: ZOLOFT PO SCH (10:03)
[2019-04-09] MEDS: BABY ASPIRIN PO SCH (10:03)
[2019-04-09] MEDS: NORVASC PO SCH (10:03)
[2019-04-09] MEDS: LOPRESSOR PO SCH ×2 (10:04→21:50)
[2019-04-09] MEDS: ALLBEE WITH C PO SCH ×2 (10:05→21:44)
[2019-04-09] MEDS: TOPAMAX PO SCH ×2 (10:05→21:56)
[2019-04-09] MEDS: MEDROL PO SCH (10:05)
[2019-04-09] MEDS: PEPCID PO SCH ×2 (10:06→21:41)
[2019-04-09] MEDS: ZESTRIL PO SCH (10:06)
[2019-04-09] MEDS: PROTONIX PO SCH (10:06)
--- NOTE | 2019-04-09 13:56 | Vascular Lab Report ---
PROCEDURE: VL CAROTID DUPLEX BILAT TECHNIQUE: Carotid duplex Doppler ultrasound. Grayscale, color flow and spectral waveform images wer e obtained. HISTORY: cervical radiculopathy COMPARISON: None FINDINGS: Moderate degree of plaque present. On the right there is no significant velocity elevations seen. The ICA/CCA velocity ratio is 1.0. The re is no evidence of any hemodynamically significant stenosis on the right. Findings correspond to st enoses of less than 50%. On the left is elevated flow velocities and proximal ICA measuring 167 cm/s the left ICA/CCA velocity ratio is 3.3. These findings correspond to stenosis of 50-69%. Vertebral artery flow is antegrade bilaterally. IMPRESSION: Moderate plaque present. Findings correspond to 50-69% stenosis involving the proximal l eft ICA. No evidence of any hemodynamically significant stenosis on the right. This document is electronically signed by Bianca Guerrero MD., April 09 2019 01:53:49 PM ET
[2019-04-09] MEDS ORDERED: MEDROL PO SCH ×2 (18:00→22:00)
[2019-04-09] MEDS: SODIUM CHLORIDE FLUSH SYRINGE 10 ML IV SCH (21:42)
[2019-04-10 01:02] VITALS: BP 142/56
[2019-04-10] MEDS: PERCOCET 5/325 PO PRN (02:51)
[2019-04-10] MEDS ORDERED: MEDROL PO SCH ×2 (07:30→19:00)
--- NOTE | 2019-04-10 09:42 | Discharge Summary ---
Providers - Providers Date of Admission: 04/06/19 03:53 Date of discharge: 04/10/19 Attending physician: DIANA RAPP 04/06/19 00:32 Consult to Dietitian/Nutrition [CONS] Routine Physician Instructions: Reason For Exam: Reason for Consult: Diet education 04/06/19 01:50 Consult to Physician [CONS] Routine Comment: Consulting Provider: ASHER CORNEJO Physician Instructions: Reason For Exam: left UE numbness 04/09/19 19:43 Consult to Physician [CONS] Routine Comment: Consulting Provider: GENA BALDERAS Physician Instructions: Reason For Exam: Lt Carotid artery stenosis Primary care physician: PASQUALE GALDAMEZ Hospitalization Reason for admission: left arm pain/radiculopathy Condition: Stable Pertinent studies: Chest x-ray VQ scan probability for PE Cervical spine MRI and ;MRI C-spine; multilevel disc degeneration most significant at C5-C6, C6-C7 moderate spinal canal and neuroforaminal narrowing[is advised to follow neurology and see neurosurgery upon discharge] carotid Doppler;Carotid Doppler; moderate plaque present findings correspond to 50-69% stenosis involving proximal left ICA, No evidence of any hemodynamically significant stenosis on the right side [Patient Is already on antiplatelets and statins as well as anticoagulation with Eliquis] Patient was advised to see vascular surgeon upon discharge Hospital course: 68-year-old female with history of coronary artery disease S/P CABG, left upper extremity DVT on Eliquis, HTN, HLD, obesity, GERD, osteoarthritis, asthma, [place], DM presents [facility] ED with complaints of numbness to left fingers and hand, pain to the left arm radiating to left side of chest. Pt states that she has left arm pain that radiates to left side of chest for the past 4 days. Her left arm pain is associated with numbness and swelling of left arm as well. Patient was admitted appropriately managed, evaluated by neurology, patient had extensive radiculopathy workup Noted to have carotid artery stenosis, patient advised vascular evaluation inpatient versus outpatient Today patient is comfortable no new complaints vital signs stable, Physical examination prior to discharge is unremarkable During the hospital stay patient was evaluated and managed by neurologist and oncology rep specialist in consultation Cleared by cardiology and neurology for discharge and follow-up with them as well as vascular for further evaluation and management Patient is stable at discharge. Discharge diagnosis: --Cervical radiculopathy; radiculopathy workup is in progress Neurology evaluation and recommendations noted and appreciated Pain medications, physical therapy occupational therapy Following moderate --Carotid artery stenosis; patient is already on antiplatelets, statins Consult vascular as needed --Atypical chest pain; probably noncardiac, secondary to radiculopathy Serial cardiac enzymes, cardiac medications, cardiology evaluation --History of lower extremity DVT; continue anticoagulation with the liquids --History of hypertension; moderate control Continue current antihypertensives and when necessary medications --History of coronary artery disease; status post CABG Continue current cardiac medications, cardiology following --Acute kidney injury; secondary to vasomotor nephropathy, present on admission Function improved, back to baseline, avoid nephrotoxins --Dyslipidemia; stable on lipid-lowering medications --DVT prophylaxis; Lovenox --Full code; Follow-up with primary care physician, neurologist, neuro surgeon, oncology rep specialist and vascular Patient scheduled for further evaluation and management Disposition: - TO HOME OR SELFCARE Time spent for discharge: 32 min Core Measure Documentation - Palliative Care Palliative Care/ Comfort Measures: Not Applicable - Core Measures Any of the following diagnoses?: none Exam - Constitutional Vitals: Temp Pulse Resp BP Pulse Ox 98.4 F 61 20 142/56 93 04/09/19 23:28 04/10/19 00:00 04/10/19 02:51 04/09/19 23:28 04/09/19 23:28 General appearance: Present: no acute distress, well-nourished - EENT Eyes: Present: PERRL, EOM intact - Neck Neck: Present: supple, normal ROM - Respiratory Respiratory effort: normal Respiratory: bilateral: diminished, negative: rales, rhonchi, wheezing - Cardiovascular Rhythm: regular Heart Sounds: Present: S1 & S2 - Extremities Extremities: no ischemia, No edema - Abdominal General gastrointestinal: Present: soft, non-tender, non-distended, normal bowel sounds - Integumentary Integumentary: Present: clear, warm - Musculoskeletal Musculoskeletal: strength equal bilaterally - Psychiatric Psychiatric: appropriate mood/affect, cooperative - Neurologic Neurologic: moves all extremities Plan Activity: advance as tolerated Diet: low salt Special Instructions: smoking cessation Additional Instructions: Advised to see private neurosurgeon in 3-4 days. Follow your orthopedic surgeon as scheduled Follow up with: PASQUALE GALDAMEZ MD [Primary Care Provider] - 3-5 Days STAPPENBECK,KELLY A, MD [Staff Physician] - 7 Days YOLI DUNN MD [Staff Physician] - 7 Days GENA BALDERAS MD [Staff Physician] - 7 Days Prescriptions: Aspirin EC 81 mg PO QDAY #30 tablet. AtorvaSTATin [Lipitor] 10 mg PO QHS #30 tab Metoprolol [Lopressor TAB] 50 mg PO BID #60 tablet HYDROcodone/APAP 5-325 [Abiquiu 5-325 mg TAB] 1 each PO TID PRN #10 tablet PRN Reason: Pain Prednisone [predniSONE 10 mg (6-Day Pack, 21 Tabs)] 10 mg PO .TAPER #1 tab.ds.pk
--- NOTE | 2019-04-10 17:40 | Event Note ---
Date: 04/10/19 Consulted for Carotid stenosis, but pt d/c'd prior to us seeing the pt. If you want pt to be eval'd by our service, then have her f/u in our office as an outpt.
[2019-04-11] MEDS ORDERED: MEDROL PO SCH ×2 (07:30→22:00)
[2019-04-12] MEDS ORDERED: MEDROL PO SCH ×2 (07:30→22:00)
[2019-04-13] MEDS ORDERED: MEDROL PO SCH (07:30)
[2019-04-14] MEDS ORDERED: MEDROL PO SCH (07:30)
[2019-04-15] MEDS ORDERED: MEDROL PO SCH (07:30)
[2019-04-16] MEDS ORDERED: MEDROL PO SCH (07:30)
[2019-04-17] MEDS ORDERED: MEDROL PO SCH (07:30)
[2019-04-18] MEDS ORDERED: MEDROL PO SCH (07:30)
[2019-04-19] MEDS ORDERED: MEDROL PO SCH (07:30)
[2019-04-20] MEDS ORDERED: MEDROL PO SCH (07:30)
== END 2019-04-10 13:00 | disposition home or self-care (01) | DRG 73 ==
LOC: ED 20:50 → 4A 04-06 03:53
PROVIDERS: ADMIT Internal Medicine; ATTEND Internal Medicine
DX: M54.12 Radiculopathy, cervical region (principal); N17.0 Acute kidney failure with tubular necrosis; R07.89 Other chest pain; E78.5 Hyperlipidemia, unspecified; I10 Essential (primary) hypertension; E11.9 Type 2 diabetes mellitus without complications; G89.29 Other chronic pain; M54.32 Sciatica, left side; M54.31 Sciatica, right side; K21.9 Gastro-esophageal reflux disease without esophagitis; J45.909 Unspecified asthma, uncomplicated; F17.210 Nicotine dependence, cigarettes, uncomplicated; I25.10 Atherosclerotic heart disease of native coronary artery without angina pectoris; E66.9 Obesity, unspecified; G43.009 Migraine without aura, not intractable, without status migrainosus; G47.30 Sleep apnea, unspecified; I65.23 Occlusion and stenosis of bilateral carotid arteries; I25.2 Old myocardial infarction; Z79.01 Long term (current) use of anticoagulants; Z95.5 Presence of coronary angioplasty implant and graft; Z90.49 Acquired absence of other specified parts of digestive tract; Z79.82 Long term (current) use of aspirin; Z68.32 Body mass index [BMI] 32.0-32.9, adult; Z95.1 Presence of aortocoronary bypass graft; Z86.718 Personal history of other venous thrombosis and embolism; Z90.710 Acquired absence of both cervix and uterus
CPT/HCPCS: 36415; 71045; 72141; 78582; 80048; 80053; 80061; 82962; 83036; 84484; 85025; 85610; 85730; 93005; 93010; 93880; 99406; G0378; A9270-GY; A9540; A9558; J1100; J1815; J2405; J7509